=== PATIENT | male | born 1995 | race American Indian/Alaskan Native ===

== ENCOUNTER 2016-10-15 05:58 | Emergency (ER) | payer MEDICAID ==
[2016-10-15] MEDS ORDERED: cefTRIAXone IV 1 gm in Dextros 50 ML IVPB ONE ×2 (06:20→06:27)
--- NOTE | 2016-10-15 06:32 | C.PDOC ---
History Of Present Illness A 21 year old male presents to the ER c/o sore throat for 3 days. Pt denies fever, chills, cough, vomiting, nausea, or any other complaints. Time Seen by Provider: 10/15/16 06:29 Chief Complaint (Nursing): ENT Problem History Per: Patient History/Exam Limitations: no limitations Onset/Duration Of Symptoms: Days Current Symptoms Are (Timing): Still Present Sick Contacts (Context): None Severity: Mild Recent travel outside of the [place]: No Additional History Per: Patient Past Medical History Reviewed: Historical Data, Nursing Documentation, Vital Signs Vital Signs: Last Vital Signs Temp 98.7 F 10/15/16 06:54 Pulse 82 10/15/16 06:54 Resp 16 10/15/16 06:54 BP 120/79 10/15/16 06:54 Pulse Ox 94 L 10/18/16 17:16 - Medical History PMH: Asthma Denies: Chronic Kidney Disease Family History: States: Unknown Family Hx - Social History Hx Tobacco Use: Yes Hx Alcohol Use: No Hx Substance Use: No - Immunization History Hx Tetanus Toxoid Vaccination: No Hx Influenza Vaccination: No Hx Pneumococcal Vaccination: No Review Of Systems Except As Marked, All Systems Reviewed And Found Negative. Constitutional: Negative for: Fever, Chills ENT: Positive for: Throat Pain. Negative for: Throat Swelling Respiratory: Negative for: Cough Gastrointestinal: Negative for: Nausea, Vomiting Musculoskeletal: Negative for: Neck Pain, Shoulder Pain, Arm Pain Skin: Negative for: Rash Neurological: Negative for: Weakness, Numbness Physical Exam - Physical Exam Appears: Non-toxic, No Acute Distress Skin: Warm, Dry Head: Atraumatic, Normacephalic Eye(s): bilateral: Normal Inspection, EOMI Oral Mucosa: Moist Throat: No Exudate Neck: Normal ROM, Supple Lymphatic: Other (Cervical node swollen bilaterally) Cardiovascular: Rhythm Regular, No Murmur Respiratory: Normal Breath Sounds, No Rales, No Rhonchi, No Wheezing Neurological/Psych: Oriented x3, Normal Speech ED Course And Treatment O2 Sat by Pulse Oximetry: 94 (RA) Pulse Ox Interpretation: Normal Medical Decision Making Medical Decision Making: Plans: -IV fluids -Throat culture -Reassess and disposition On reassessment, patient is resting comfortably, and is in no acute distress. Patient was instructed to follow up with physician/clinic in 1-2 days for further evaluation. Disposition Counseled Patient/Family Regarding: Diagnosis - Disposition Referrals: [facility] [Outside] Disposition: HOME/ ROUTINE Disposition Time: 06:50 Condition: STABLE Additional Instructions: warm salt water gargle every 2 hours Prescriptions: Amoxicillin [Trimox] 500 mg PO Q8 7 Days Instructions: Tonsillitis (ED) - Clinical Impression Clinical Impression: Acute tonsillitis - Scribe Statement The provider has reviewed the documentation as recorded by the Scribpranav austin All medical record entries made by the Shawnibpranav were at my direction and personally dictated by me. I have reviewed the chart and agree that the record accurately reflects my personal performance of the history, physical exam, medical decision making, and the department course for this patient. I have also personally directed, reviewed, and agree with the discharge instructions and disposition.
[2016-10-15 06:55] VITALS: BP 120/79; PULSE 82; RESP 16; TEMP 98.7
[2016-10-18 17:15] VITALS: O2SAT 94
== END 2016-10-15 06:57 | disposition home or self-care (01) ==
LOC: C.ER 05:58
DX: J03.90 Acute tonsillitis, unspecified (principal)
CPT/HCPCS: 87070; 96365; 99283; J0696

== ENCOUNTER 2016-10-25 07:18 | Inpatient (IN) | payer MEDICAID ==
[2016-10-25] MEDS ORDERED: Albuterol-Ipratrop 3 mg / 0.5 (3 ml) UD ONE ×3 (07:23→10:07)
[2016-10-25 07:43] VITALS: BMI 24.4
--- NOTE | 2016-10-25 07:48 | C.PDOC ---
Time Seen by Provider: 10/25/16 07:25 Chief Complaint (Nursing): Shortness Of Breath Past Medical History Vital Signs: Last Vital Signs Temp Pulse 88 10/25/16 07:25 Resp 24 10/25/16 07:25 BP 136/66 10/25/16 07:25 Pulse Ox 95 10/25/16 07:25 - Medical History PMH: Asthma Denies: Chronic Kidney Disease Family History: States: Unknown Family Hx - Social History Hx Tobacco Use: Yes Hx Alcohol Use: No Hx Substance Use: No - Immunization History Hx Tetanus Toxoid Vaccination: No Hx Influenza Vaccination: No Hx Pneumococcal Vaccination: No ED Course And Treatment O2 Sat by Pulse Oximetry: 95 - Scribe Statement The provider has reviewed the documentation as recorded by the Shawnibpranav Roque All medical record entries made by the Shawnibpranav were at my direction and personally dictated by me. I have reviewed the chart and agree that the record accurately reflects my personal performance of the history, physical exam, medical decision making, and the department course for this patient. I have also personally directed, reviewed, and agree with the discharge instructions and disposition.
--- NOTE | 2016-10-25 07:54 | C.PDOC ---
History Of Present Illness 21-year-old male, PMHx includes Asthma, presents to the emergency department with complaints of worsening shortness of breath and wheezing x4 days. Patient is using his inhaler at home with limited relief. Patients last treatment was yesterday. Time Seen by Provider: 10/25/16 07:25 Chief Complaint (Nursing): Shortness Of Breath History Per: Patient History/Exam Limitations: no limitations Onset/Duration Of Symptoms: Days Current Symptoms Are (Timing): Still Present Past Medical History Reviewed: Historical Data, Nursing Documentation, Vital Signs Vital Signs: Last Vital Signs Temp 98.3 F 10/25/16 11:46 Pulse 101 H 10/25/16 11:46 Resp 22 10/25/16 11:46 BP 139/64 10/25/16 11:46 Pulse Ox 93 L 10/25/16 11:46 - Medical History PMH: Asthma Denies: Chronic Kidney Disease Family History: States: No Known Family Hx - Social History Hx Tobacco Use: Yes Hx Alcohol Use: No Hx Substance Use: No - Immunization History Hx Tetanus Toxoid Vaccination: No Hx Influenza Vaccination: No Hx Pneumococcal Vaccination: No Review Of Systems Except As Marked, All Systems Reviewed And Found Negative. Constitutional: Negative for: Fever, Chills Cardiovascular: Negative for: Chest Pain Respiratory: Positive for: Shortness of Breath, Wheezing Gastrointestinal: Negative for: Nausea, Vomiting Physical Exam - Physical Exam Appears: Non-toxic, No Acute Distress Skin: Warm, Dry Head: Atraumatic Eye(s): bilateral: Normal Inspection Nose: Normal Oral Mucosa: Moist Lips: Normal Appearing Neck: Normal ROM Chest: Symmetrical Cardiovascular: Rhythm Regular Respiratory: No Accessory Muscle Use, Wheezing Extremity: Normal ROM ED Course And Treatment - Laboratory Results Result Diagrams: 10/25/16 10:21 10/25/16 10:21 Lab Interpretation: No Acute Changes O2 Sat by Pulse Oximetry: 95 Pulse Ox Interpretation: Normal - Radiology CXR: Interpreted by Ga CXR Interpretation: Yes: No Acute Disease Progress Note: Case discussed with Dr. Dyson who is aware of the plan and will admit the patient. Dr. Dyson requests to have an ABG done. Reassessment Condition: Improved - Physician Consult Information Physician Contacted: Shelly Dyson Outcome Of Conversation: admit Medical Decision Making Medical Decision Making: Treated with prednisone 60 mg PO and duoneb x 3 On re-evaluation lungs wheeze and rhonchi Treated with addditional duoneb x 2, 1 L NSS O2 sat 90 on RA Disposition Discussed With Dr.: Shelly Dyson Doctor Will See Patient In The: Hospital - Disposition Disposition: HOSPITALIZED Disposition Time: 11:00 Condition: STABLE - POA Present On Arrival: None - Clinical Impression Clinical Impression: Respiratory distress, Asthma exacerbation, Exacerbation of asthma - Scribe Statement The provider has reviewed the documentation as recorded by the Len Roque All medical record entries made by the Shawnibpranav were at my direction and personally dictated by me. I have reviewed the chart and agree that the record accurately reflects my personal performance of the history, physical exam, medical decision making, and the department course for this patient. I have also personally directed, reviewed, and agree with the discharge instructions and disposition. Decision To Admit - Pt Status Changed To: Hospital Disposition Of: Observation - . Bed Request Type: Regular Admitting Physician: Shelly Dyson Patient Diagnosis: Respiratory distress, Asthma exacerbation, Exacerbation of asthma
[2016-10-25] MEDS: Albuterol-Ipratrop 3 mg / 0.5 (3 ml) UD IH SCH ×5 (08:00→10:50)
[2016-10-25] MEDS ORDERED: Sodium Chloride 0.9% 1,000 ML IV ONE (08:55)
--- NOTE | 2016-10-25 10:02 | RAD ---
HISTORY: SOB COMPARISON: No prior. TECHNIQUE: Chest PA and lateral FINDINGS: LUNGS: No active pulmonary disease. PLEURA: No significant pleural effusion identified. No pneumothorax apparent. CARDIOVASCULAR: Normal. OSSEOUS STRUCTURES: No significant abnormalities. VISUALIZED UPPER ABDOMEN: Normal. OTHER FINDINGS: None. IMPRESSION: No active disease.
[2016-10-25 10:25] LABS: BASO # 0.1 K/uL (0.0-0.2); BASO % 0.6 % (0.0-2.0); EOS # 0.3 K/uL (0.0-0.7); EOS % 2.4 % (0.0-4.0); HEMATOCRIT 44.2 % (35.0-51.0); LYMPH # 1.3 K/uL (1.0-4.3); LYMPH % 10.8 % (20.0-40.0); MEAN CELL VOLUME 86.3 fL (80.0-94.0); MEAN CORPUSCULAR HEMOGLOBIN 29.4 pg (27.0-31.0); MEAN CORPUSCULAR HGB CONC 34.1 g/dL (33.0-37.0); MEAN PLATELET VOLUME 7.1 fL (7.2-11.7); MONO # 0.4 K/uL (0.0-0.8); MONO % 3.5 % (0.0-10.0); RED CELL DISTRIBUTION WIDTH 12.3 % (11.5-14.5)
[2016-10-25 10:51] LABS: CHLORIDE 101 mmol/L (98-107); POTASSIUM 3.7 mmol/L (3.6-5.2); SODIUM 139 mmol/L (132-148)
[2016-10-25 10:53] LABS: BILIRUBIN,TOTAL 0.9 mg/dL (0.2-1.3); GFR AFRICAN-AMERICAN > 60
[2016-10-25 10:54] LABS: ALKALINE PHOSPHATASE 56 U/L (38-126); ALT/SGPT 18 U/L (21-72); AST/SGOT 48 U/L (17-59); BLOOD UREA NITROGEN 9 mg/dL (9-20); CALCIUM 9.1 mg/dl (8.6-10.4); CARBON DIOXIDE 25 mmol/L (22-30); GLUCOSE,RANDOM 100 mg/dL (75-110); TOTAL PROTEIN 8.6 g/dL (6.3-8.3)
[2016-10-25 11:36] LABS: ABG ALLEN TEST POS; ARTERIAL BLOOD HGB O2 SAT 90.9 % (95.0-98.0); CARBOXYHEMOGLOBIN 1.7 % (0.5-1.5); DRAW SITE RR; HHB 6.3 % (0.0-5.0); METHEMOGLOBIN 1.2 % (0.0-3.0)
--- NOTE | 2016-10-25 11:36 | CP.PCM.HP ---
<Bhavna Guillen - Last Filed: 10/25/16 13:57> History of Present Illness - History of Present Illness History of Present Illness: Medicine Note for Dr. Cosby, CC: SOB HPI: 21M with PMHx of asthma came in to the ED complaining of shortness of breath and wheezing. He states that he was recently in the hospital last week for tonsillitis and was discharged with antibiotics which he completed his course. He states that since his illness his breathing has been getting progressively worse where he would need his nebulizer 3-4 times a day, and would feel short of breath right after its use. He states that his SOB gets worse with exertion. He states that he has been hospitalized in the past for asthma exacerbations when he was a child and does not recall ever being intubated. He does not have a PMD and states he gets his medications from his cousins which include an Albuterol inhaler and a nebulizer. He states that he usually uses his inhaler 2 times a day and his nebulizer as much as 4 times a day. He admits to dry coughing, sob, chest discomfort from coughing, and wheezing. He denies any chest pain, palpitations, nausea, hematemesis, vomiting , fever, chills, recent travel, or sick contacts. PMD: NONE PMHx: Asthma PSHx: Denied Meds: albuterol and nebulizer All: seafood SHx: Denied any tobacco, alcohol, or illicit drug use FHx: Asthma Present on Admission - Present on Admission Any Indicators Present on Admission: No Past Patient History - Infectious Disease Hx of Infectious Diseases: None - Past Social History Smoking Status: Never Smoked - PULMONARY Hx Asthma: Yes - NEUROLOGICAL Hx Neurological Disorder: No - HEENT Hx HEENT Problems: No - RENAL Hx Chronic Kidney Disease: No - ENDOCRINE/METABOLIC Hx Endocrine Disorders: No - HEMATOLOGICAL/ONCOLOGICAL Hx Blood Disorders: No - INTEGUMENTARY Hx Dermatological Problems: No - MUSCULOSKELETAL/RHEUMATOLOGICAL Hx Musculoskeletal Disorders: No - GASTROINTESTINAL Hx Gastrointestinal Disorders: No - GENITOURINARY/GYNECOLOGICAL Hx Genitourinary Disorders: No - PSYCHIATRIC Hx Substance Use: No - SURGICAL HISTORY Hx Surgeries: No - ANESTHESIA Hx Anesthesia: No Meds Allergies/Adverse Reactions: Allergies Allergy/AdvReac Type Severity Reaction Status Date / Time seafood Allergy URTICARIA Uncoded 02/10/16 00:35 Physical Exam - Constitutional Appears: No Acute Distress - ENT Exam ENT Exam: Mucous Membranes Moist - Respiratory Exam Respiratory Exam: Wheezes - Cardiovascular Exam Cardiovascular Exam: Tachycardia - GI/Abdominal Exam GI & Abdominal Exam: Normal Bowel Sounds, Soft. absent: Distended, Tenderness - Extremities Exam Extremities exam: Positive for: normal inspection, pedal pulses present. Negative for: pedal edema, tenderness - Skin Skin Exam: Dry, Intact, Normal Color, Warm Results - Vital Signs Recent Vital Signs: Last Vital Signs Temp 98.8 F 10/25/16 07:25 Pulse 88 10/25/16 07:25 Resp 24 10/25/16 07:45 BP 136/66 10/25/16 07:25 Pulse Ox 95 10/25/16 11:05 - Labs Result Diagrams: 10/25/16 10:21 10/25/16 10:21 Assessment & Plan - Assessment and Plan (Free Text) Assessment: 21M with PMHx of Asthma presented to the ED with Asthma Exacerbation. Plan: Asthma Exacerbation - Received Duonebs x3 Q15 min, predisone 60mg PO in ED; continuous bilateral wheezing - Duonebs Q6H - Pulmicort IH Q12H - Solumedrol 40mg IV Q8H Prophylactic Measures - GI PPX: Protonix 40mg PO daily - DVT PPX: Lovenox 40units SC daily - Regular Diet - Zofran PRN DW Wilmer Sandoval DO, PGY-1 <Chase Cosby - Last Filed: 10/25/16 16:20> Results - Vital Signs Recent Vital Signs: Last Vital Signs Temp 98.6 F 10/25/16 13:23 Pulse 87 10/25/16 13:23 Resp 22 10/25/16 13:23 BP 116/66 10/25/16 13:23 Pulse Ox 92 L 10/25/16 13:23 - Labs Result Diagrams: 10/25/16 10:21 10/25/16 10:21 Labs: Laboratory Results - last 24 hr 10/25/16 10/25/16 11:33 12:21 Puncture Site Rr pCO2 30 L pO2 61 L HCO3 23.2 ABG pH 7.45 ABG Total CO2 21.8 L ABG O2 Saturation 93.5 L ABG Base Excess -2.0 ABG Hemoglobin 14.6 ABG Carboxyhemoglobin 1.7 H POC ABG HHb (Measured) 6.3 H ABG Methemoglobin 1.2 Von Test Pos A-a O2 Difference 51.0 Respiratory Index 0.8 Hgb O2 Saturation 90.9 L FiO2 21.0 Urine Color Yellow Urine Clarity Clear Urine pH 6.0 Ur Specific [place] 1.027 Urine Protein Negative Urine Glucose (UA) Normal Urine Ketones 1+ H Urine Blood Negative Urine Nitrate Negative Urine Bilirubin Negative Urine Urobilinogen 2.0 Ur Leukocyte Esterase Neg Urine WBC (Auto) 1 Urine RBC (Auto) 1 Attending/Attestation - Attestation I have personally seen and examined this patient.: Yes I have fully participated in the care of the patient.: Yes I have reviewed all pertinent clinical information: Yes Notes (Text): 10/25/16 16:17 Patient seen and examined at bedside with the resident We will admit the patient for acute asthma exacerbation Start the patient on IV steroids and inhaled steroids and nebulizing treatment. I discussed the plan of care with the resident and I agree with above history and physical and assessment/plan by the resident
[2016-10-25 12:54] LABS: RBC URINE 1 /hpf (0-3); URINE BILIRUBIN NEGATIVE (NEGATIVE); URINE BLOOD NEGATIVE (NEGATIVE); URINE COLOR Yellow (YELLOW); URINE GLUCOSE (UA) NORMAL (Normal); URINE KETONE 1+ mg/dL (NEGATIVE); URINE LEUKOCYTE ESTERASE NEG Leu/uL (Negative); URINE PROTEIN NEGATIVE (NEGATIVE); WBC URINE 1 /hpf (0-5)
[2016-10-25] MEDS: MethylPREDNISolone 40 mg Vial IVP SCH ×2 (14:12→21:57)
[2016-10-25] MEDS: Albuterol-Ipratrop 3 mg / 0.5 (3 ml) UD INH SCH (23:44)
[2016-10-26] MEDS: Albuterol-Ipratrop 3 mg / 0.5 (3 ml) UD INH SCH ×4 (01:28→20:05)
[2016-10-26] MEDS: MethylPREDNISolone 40 mg Vial IVP SCH ×3 (05:41→21:30)
[2016-10-26] MEDS: Budesonide 0.5 mg/2 ml Inhal Susp UD INH SCH ×2 (07:20→20:05)
[2016-10-26 09:04] LABS: BASO % 0.1 % (0.0-2.0); HEMATOCRIT 42.7 % (35.0-51.0); LYMPH % 9.8 % (20.0-40.0); MEAN CELL VOLUME 87.3 fL (80.0-94.0); MEAN CORPUSCULAR HEMOGLOBIN 30.2 pg (27.0-31.0); MEAN CORPUSCULAR HGB CONC 34.7 g/dL (33.0-37.0); MEAN PLATELET VOLUME 7.5 fL (7.2-11.7); MONO # 0.3 K/uL (0.0-0.8); MONO % 2.6 % (0.0-10.0); PLATELET COUNT 430 K/uL (130-400); RED CELL DISTRIBUTION WIDTH 12.5 % (11.5-14.5); WHITE BLOOD COUNT 10.8 K/uL (4.8-10.8)
[2016-10-26 09:37] LABS: CHLORIDE 101 mmol/L (98-107)
[2016-10-26 09:38] LABS: POTASSIUM 4.1 mmol/L (3.6-5.2); SODIUM 139 mmol/L (132-148)
[2016-10-26 09:40] LABS: ALKALINE PHOSPHATASE 56 U/L (38-126); ALT/SGPT 21 U/L (21-72); AST/SGOT 31 U/L (17-59); BILIRUBIN,TOTAL 0.8 mg/dL (0.2-1.3); BLOOD UREA NITROGEN 14 mg/dL (9-20); CARBON DIOXIDE 24 mmol/L (22-30); GFR AFRICAN-AMERICAN > 60; GLUCOSE,RANDOM 130 mg/dL (75-110); TOTAL PROTEIN 8.5 g/dL (6.3-8.3)
[2016-10-26 09:41] LABS: CALCIUM 9.1 mg/dl (8.6-10.4); PHOSPHOROUS 4.2 mg/dL (2.5-4.5)
[2016-10-26 09:47] LABS: NEUTROPHIL 88 % (50-75); TOTAL CELLS COUNTED 100
[2016-10-26 09:48] LABS: GIANT PLATELETS PRESENT; LARGE PLATELETS PRESENT
[2016-10-26] MEDS: Pantoprazole 40 mg EC Tab PO SCH (10:08)
[2016-10-26] MEDS: Enoxaparin 40 mg Syringe SC SCH (10:08)
--- NOTE | 2016-10-26 15:26 | CP.PCM.PN ---
<Bhavna Guillen - Last Filed: 10/26/16 15:23> Subjective - Date & Time of Evaluation Date of Evaluation: 10/26/16 Time of Evaluation: 10:00 - Subjective Subjective: Medicine Note for Dr. Cosby, Patient seen and examined at bedside. No acute events overnight. Patient reports he slept with NC on all night. Patient reports his breathing is a lot easier and he is not feeling short of breath. Ambulating well and tolerating diet. Denied fever, chills, chest pain, shortness of breath, abdominal pain or urinary symptoms. Objective - Vital Signs/Intake and Output Vital Signs (last 24 hours): Temp Pulse Resp BP Pulse Ox 97.8 F 85 18 116/66 91 L 10/26/16 08:00 10/26/16 08:00 10/26/16 08:00 10/26/16 08:00 10/26/16 08:00 Intake and Output: 10/26/16 10/26/16 06:59 18:59 Intake Total 480 Balance 480 - Medications Medications: Current Medications Albuterol/Ipratropium (Duoneb 3 Mg/0.5 Mg (3 Ml) Ud) 3 ml INH RQ6 [facility] Last Admin: 10/26/16 07:21 Dose: 3 ml Budesonide (Pulmicort Respules) 0.5 mg INH RQ12 [facility] Last Admin: 10/26/16 07:20 Dose: 0.5 mg Enoxaparin Sodium (Lovenox) 40 mg SC DAILY [facility] Last Admin: 10/26/16 10:08 Dose: 40 mg Methylprednisolone (Solu-Medrol) 40 mg IVP Q8 [facility] Last Admin: 10/26/16 14:33 Dose: Not Given Ondansetron HCl (Zofran Inj) 4 mg IVP Q6 PRN PRN Reason: Nausea/Vomiting Pantoprazole Sodium (Protonix Ec Tab) 40 mg PO DAILY [facility] Last Admin: 10/26/16 10:08 Dose: 40 mg - Constitutional Appears: No Acute Distress - Head Exam Head Exam: NORMAL INSPECTION, NORMOCEPHALIC - Respiratory Exam Respiratory Exam: Wheezes, NORMAL BREATHING PATTERN. absent: Decreased Breath Sounds Additional comments: Continues to have Bilateral wheezing at the lower lung bases - Cardiovascular Exam Cardiovascular Exam: REGULAR RHYTHM, RRR, +S1, +S2 - GI/Abdominal Exam GI & Abdominal Exam: Soft, Normal Bowel Sounds - Extremities Exam Extremities Exam: Normal Inspection. absent: Pedal Edema, Tenderness - Neurological Exam Neurological Exam: Alert, Awake, Oriented x3 - Skin Skin Exam: Dry, Intact, Normal Color, Warm Assessment and Plan - Assessment and Plan (Free Text) Plan: Asthma Exacerbation - Received Duonebs x3 Q15 min, predisone 60mg PO in ED; continuous bilateral wheezing - Duonebs Q6H - Pulmicort IH Q12H - Solumedrol 40mg IV Q8H - Continue due to persistent wheezing - Peak flow Pre 150, post tx 150 Prophylactic Measures - GI PPX: Protonix 40mg PO daily - DVT PPX: Lovenox 40units SC daily - Regular Diet - Zofran PRN DW Wilmer Sandoval DO, PGY-1 <Chase Cosby - Last Filed: 10/26/16 17:29> Objective - Vital Signs/Intake and Output Vital Signs (last 24 hours): Temp Pulse Resp BP Pulse Ox 98 F 92 H 20 111/65 95 10/26/16 16:00 10/26/16 16:00 10/26/16 16:00 10/26/16 16:00 10/26/16 16:00 Intake and Output: 10/26/16 10/26/16 06:59 18:59 Intake Total 480 Balance 480 - Medications Medications: Current Medications Albuterol/Ipratropium (Duoneb 3 Mg/0.5 Mg (3 Ml) Ud) 3 ml INH RQ6 [facility] Last Admin: 10/26/16 07:21 Dose: 3 ml Budesonide (Pulmicort Respules) 0.5 mg INH RQ12 [facility] Last Admin: 10/26/16 07:20 Dose: 0.5 mg Enoxaparin Sodium (Lovenox) 40 mg SC DAILY [facility] Last Admin: 10/26/16 10:08 Dose: 40 mg Methylprednisolone (Solu-Medrol) 40 mg IVP Q8 [facility] Last Admin: 10/26/16 14:33 Dose: Not Given Ondansetron HCl (Zofran Inj) 4 mg IVP Q6 PRN PRN Reason: Nausea/Vomiting Pantoprazole Sodium (Protonix Ec Tab) 40 mg PO DAILY [facility] Last Admin: 10/26/16 10:08 Dose: 40 mg Attending/Attestation - Attestation I have personally seen and examined this patient.: Yes I have fully participated in the care of the patient.: Yes I have reviewed all pertinent clinical information, including history, physical exam and plan: Yes Notes (Text): 10/26/16 17:29 Patient was seen and examined at bedside. Patient still has significant wheezing. Peak flow noted. We will continue treatment with IV Solu-Medrol and DuoNeb treatment We will also continue Pulmicort. I discussed the plan of care with the resident and I agree with the above history and physical and assessment/plan but the resident
[2016-10-26 17:03] VITALS: RESP 20
[2016-10-27] MEDS: Albuterol-Ipratrop 3 mg / 0.5 (3 ml) UD INH SCH ×4 (01:02→19:07)
[2016-10-27] MEDS: MethylPREDNISolone 40 mg Vial IVP SCH ×3 (05:48→21:58)
[2016-10-27] MEDS: Budesonide 0.5 mg/2 ml Inhal Susp UD INH SCH (07:27)
[2016-10-27 07:36] LABS: HEMATOCRIT 42.8 % (35.0-51.0); MEAN CELL VOLUME 87.2 fL (80.0-94.0); MEAN CORPUSCULAR HGB CONC 34.4 g/dL (33.0-37.0); MEAN PLATELET VOLUME 7.4 fL (7.2-11.7); RED CELL DISTRIBUTION WIDTH 12.5 % (11.5-14.5); WHITE BLOOD COUNT 13.5 K/uL (4.8-10.8)
[2016-10-27 08:04] LABS: CHLORIDE 102 mmol/L (98-107)
[2016-10-27 08:05] LABS: POTASSIUM 4.1 mmol/L (3.6-5.2); SODIUM 139 mmol/L (132-148)
[2016-10-27 08:07] LABS: AST/SGOT 20 U/L (17-59); BILIRUBIN,TOTAL 0.6 mg/dL (0.2-1.3); BLOOD UREA NITROGEN 15 mg/dL (9-20); CARBON DIOXIDE 26 mmol/L (22-30); GFR AFRICAN-AMERICAN > 60; TOTAL PROTEIN 8.2 g/dL (6.3-8.3)
[2016-10-27 08:08] LABS: ALKALINE PHOSPHATASE 53 U/L (38-126); ALT/SGPT 18 U/L (21-72); CALCIUM 8.7 mg/dl (8.6-10.4); GLUCOSE,RANDOM 118 mg/dL (75-110)
[2016-10-27] MEDS: Enoxaparin 40 mg Syringe SC SCH (10:00)
[2016-10-27] MEDS: Pantoprazole 40 mg EC Tab PO SCH (10:05)
--- NOTE | 2016-10-27 14:18 | CP.PCM.PN ---
<Bhavna Guillen - Last Filed: 10/27/16 14:15> Subjective - Date & Time of Evaluation Date of Evaluation: 10/27/16 Time of Evaluation: 10:00 - Subjective Subjective: Medicine Note for Dr. Cosby, Patient seen and examined at bedside. No acute events overnight. Patient reports his breathing is a lot easier but continues to have audible wheezing, and wheezing on physical exam. Ambulating well without oxygen and tolerating diet. Denied fever, chills, chest pain, shortness of breath, abdominal pain or urinary symptoms. Objective - Vital Signs/Intake and Output Vital Signs (last 24 hours): Temp Pulse Resp BP Pulse Ox 98.1 F 69 20 117/65 94 L 10/27/16 07:05 10/27/16 07:05 10/27/16 07:05 10/27/16 07:05 10/27/16 07:05 - Medications Medications: Current Medications Albuterol/Ipratropium (Duoneb 3 Mg/0.5 Mg (3 Ml) Ud) 3 ml INH RQ6 [facility] Last Admin: 10/27/16 13:34 Dose: 3 ml Budesonide (Pulmicort Respules) 0.5 mg INH RQ12 [facility] Last Admin: 10/27/16 07:27 Dose: 0.5 mg Enoxaparin Sodium (Lovenox) 40 mg SC DAILY [facility] Last Admin: 10/27/16 10:00 Dose: 40 mg Methylprednisolone (Solu-Medrol) 40 mg IVP Q8 [facility] Last Admin: 10/27/16 05:48 Dose: 40 mg Ondansetron HCl (Zofran Inj) 4 mg IVP Q6 PRN PRN Reason: Nausea/Vomiting Pantoprazole Sodium (Protonix Ec Tab) 40 mg PO DAILY [facility] Last Admin: 10/27/16 10:05 Dose: 40 mg - Labs Labs: 10/27/16 07:25 10/27/16 07:25 - Constitutional Appears: No Acute Distress - Head Exam Head Exam: NORMAL INSPECTION, NORMOCEPHALIC - Respiratory Exam Respiratory Exam: Wheezes - Cardiovascular Exam Cardiovascular Exam: REGULAR RHYTHM, RRR, +S1, +S2 - GI/Abdominal Exam GI & Abdominal Exam: Soft, Normal Bowel Sounds. absent: Distended, Tenderness - Extremities Exam Extremities Exam: Normal Inspection. absent: Pedal Edema, Tenderness - Neurological Exam Neurological Exam: Alert, Awake, Oriented x3 - Skin Skin Exam: Dry, Intact, Normal Color, Warm Assessment and Plan - Assessment and Plan (Free Text) Plan: Asthma Exacerbation - Received Duonebs x3 Q15 min, predisone 60mg PO in ED; continuous bilateral wheezing - Duonebs Q6H - Pulmicort IH Q12H - Solumedrol 40mg IV Q8H - Continue due to persistent wheezing - Peak flow Pre 150, post tx 150 Prophylactic Measures - GI PPX: Protonix 40mg PO daily - DVT PPX: Lovenox 40units SC daily - Regular Diet - Zofran PRN DW Wilmer Sandoval DO, PGY-1 <Chase Cosby - Last Filed: 10/27/16 16:17> Objective - Vital Signs/Intake and Output Vital Signs (last 24 hours): Temp Pulse Resp BP Pulse Ox 98.1 F 69 20 117/65 94 L 10/27/16 07:05 10/27/16 07:05 10/27/16 07:05 10/27/16 07:05 10/27/16 07:05 Intake and Output: 10/27/16 10/27/16 06:59 18:59 Intake Total 400 Balance 400 - Medications Medications: Current Medications Albuterol/Ipratropium (Duoneb 3 Mg/0.5 Mg (3 Ml) Ud) 3 ml INH RQ6 [facility] Last Admin: 10/27/16 13:34 Dose: 3 ml Budesonide (Pulmicort Respules) 0.5 mg INH RQ12 [facility] Last Admin: 10/27/16 07:27 Dose: 0.5 mg Enoxaparin Sodium (Lovenox) 40 mg SC DAILY [facility] Last Admin: 10/27/16 10:00 Dose: 40 mg Methylprednisolone (Solu-Medrol) 40 mg IVP Q8 [facility] Last Admin: 10/27/16 14:25 Dose: 40 mg Ondansetron HCl (Zofran Inj) 4 mg IVP Q6 PRN PRN Reason: Nausea/Vomiting Pantoprazole Sodium (Protonix Ec Tab) 40 mg PO DAILY [facility] Last Admin: 10/27/16 10:05 Dose: 40 mg - Labs Labs: 10/27/16 07:25 10/27/16 07:25 Attending/Attestation - Attestation I have personally seen and examined this patient.: Yes I have fully participated in the care of the patient.: Yes I have reviewed all pertinent clinical information, including history, physical exam and plan: Yes Notes (Text): 10/27/16 16:16 Patient was seen and examined at bedside with the resident Patient continues to have significant wheezing. We will continue treatment with IV Solu-Medrol and nebulizing treatment Patient is also on Pulmicort Peak flow noted. I reviewed patient's chart, medical records, labs, imaging studies and I discussed the plan of care with the resident I agree with the above history and physical and assessment/plan but the resident.
[2016-10-28] MEDS: Albuterol-Ipratrop 3 mg / 0.5 (3 ml) UD INH SCH ×4 (02:07→19:21)
--- NOTE | 2016-10-28 03:07 | CP.PCM.PN ---
<Beck Roberson - Last Filed: 10/28/16 03:12> Subjective - Date & Time of Evaluation Date of Evaluation: 10/28/16 Time of Evaluation: 03:05 - Subjective Subjective: Med progress note. Attending: Dr. Cosby Patient seen and examined at bedside. No acute events so far overnight. Patient denies shortness of breath and says he feels better. Ambulating well without oxygen and tolerating diet. Denied fever, chills, chest pain, shortness of breath, abdominal pain or urinary symptoms. Objective - Vital Signs/Intake and Output Vital Signs (last 24 hours): Temp Pulse Resp BP Pulse Ox 98 F 73 20 125/66 95 10/27/16 23:44 10/27/16 23:44 10/27/16 23:44 10/27/16 23:44 10/27/16 23:44 Intake and Output: 10/27/16 10/28/16 18:59 06:59 Intake Total 400 Balance 400 - Medications Medications: Current Medications Albuterol/Ipratropium (Duoneb 3 Mg/0.5 Mg (3 Ml) Ud) 3 ml INH RQ6 [facility] Last Admin: 10/28/16 02:07 Dose: 3 ml Budesonide (Pulmicort Respules) 0.5 mg INH RQ12 [facility] Last Admin: 10/27/16 07:27 Dose: 0.5 mg Enoxaparin Sodium (Lovenox) 40 mg SC DAILY [facility] Last Admin: 10/27/16 10:00 Dose: 40 mg Methylprednisolone (Solu-Medrol) 40 mg IVP Q8 [facility] Last Admin: 10/27/16 21:58 Dose: 40 mg Ondansetron HCl (Zofran Inj) 4 mg IVP Q6 PRN PRN Reason: Nausea/Vomiting Pantoprazole Sodium (Protonix Ec Tab) 40 mg PO DAILY [facility] Last Admin: 10/27/16 10:05 Dose: 40 mg - Labs Labs: 10/27/16 07:25 10/27/16 07:25 - Constitutional Appears: Non-toxic, No Acute Distress - Head Exam Head Exam: ATRAUMATIC, NORMAL INSPECTION, NORMOCEPHALIC - Eye Exam Eye Exam: EOMI - ENT Exam ENT Exam: Mucous Membranes Moist - Neck Exam Neck Exam: Full ROM, Normal Inspection - Respiratory Exam Respiratory Exam: Wheezes. absent: Respiratory Distress - Cardiovascular Exam Cardiovascular Exam: +S1, +S2 - GI/Abdominal Exam GI & Abdominal Exam: Soft, Normal Bowel Sounds. absent: Tenderness - Extremities Exam Extremities Exam: Full ROM, Normal Inspection - Back Exam Back Exam: NORMAL INSPECTION - Neurological Exam Neurological Exam: Alert, Awake, Oriented x3 - Psychiatric Exam Psychiatric exam: Normal Affect, Normal Mood - Skin Skin Exam: Dry, Intact, Normal Color, Warm Assessment and Plan - Assessment and Plan (Free Text) Assessment: This is a 21 yo male with past medical hx of asthma presenting with Asthma Exacerbation -continue duonebs round the clock q 6 hrs - Pulmicort IH .5 mg Q12H - Solumedrol 40mg IV Q8H - Continue due to persistent wheezing -pt hemodynamically stable, no resp distress -CXR 10/25 : no active disease. Prophylactic Measures - GI PPX: Protonix 40mg PO daily - DVT PPX: Lovenox 40units SC daily - Regular Diet - Zofran 4 mg q 6 hrs PRN to be discussed with Dr. Cosby <Chase Cosby - Last Filed: 10/28/16 14:49> Objective - Vital Signs/Intake and Output Vital Signs (last 24 hours): Temp Pulse Resp BP Pulse Ox 97.4 F L 63 20 124/74 97 10/28/16 08:10 10/28/16 08:10 10/28/16 08:10 10/28/16 08:10 10/28/16 08:10 Intake and Output: 10/28/16 10/28/16 06:59 18:59 Intake Total 120 Balance 120 - Medications Medications: Current Medications Albuterol/Ipratropium (Duoneb 3 Mg/0.5 Mg (3 Ml) Ud) 3 ml INH RQ6 [facility] Last Admin: 10/28/16 13:52 Dose: 3 ml Budesonide (Pulmicort Respules) 0.5 mg INH RQ12 [facility] Last Admin: 10/28/16 09:45 Dose: 0.5 mg Methylprednisolone (Solu-Medrol) 40 mg IVP Q8 [facility] Last Admin: 10/28/16 14:34 Dose: 40 mg Ondansetron HCl (Zofran Inj) 4 mg IVP Q6 PRN PRN Reason: Nausea/Vomiting Pantoprazole Sodium (Protonix Ec Tab) 40 mg PO DAILY [facility] Last Admin: 10/28/16 10:17 Dose: 40 mg - Labs Labs: 10/27/16 07:25 10/27/16 07:25 Attending/Attestation - Attestation I have personally seen and examined this patient.: Yes I have fully participated in the care of the patient.: Yes I have reviewed all pertinent clinical information, including history, physical exam and plan: Yes Notes (Text): 10/28/16 14:48 Patient seen and examined at bedside. He states that he is feeling slightly better. Breathing has improved. However we will continue to monitor peak flow pre-and post treatment Patient is not ready for discharge as yet. We will continue current management Discussed the plan of care with the resident.
[2016-10-28] MEDS: MethylPREDNISolone 40 mg Vial IVP SCH ×3 (06:53→22:26)
[2016-10-28] MEDS: Budesonide 0.5 mg/2 ml Inhal Susp UD INH SCH ×2 (09:45→19:21)
[2016-10-28] MEDS: Enoxaparin 40 mg Syringe SC SCH (10:17)
[2016-10-28] MEDS: Pantoprazole 40 mg EC Tab PO SCH (10:17)
[2016-10-29] MEDS: Albuterol-Ipratrop 3 mg / 0.5 (3 ml) UD INH SCH ×4 (01:24→19:47)
[2016-10-29] MEDS: MethylPREDNISolone 40 mg Vial IVP SCH ×3 (05:24→21:44)
[2016-10-29] MEDS: Budesonide 0.5 mg/2 ml Inhal Susp UD INH SCH (08:52)
[2016-10-29] MEDS: Pantoprazole 40 mg EC Tab PO SCH (11:13)
--- NOTE | 2016-10-29 11:14 | CP.PCM.PN ---
<CourtneyLoraine - Last Filed: 10/29/16 12:31> Subjective - Date & Time of Evaluation Date of Evaluation: 10/29/16 Time of Evaluation: 08:30 - Subjective Subjective: Medicine Progress Note- Dr. Cosby's Service: Patient seen and examined at bedside this AM. Patient reports he is feeling much better this morning. However, he continued to wheeze. Peak flow done today at bedside was 150 at maximum effort after nebulizer treatment 1 hour prior. Admits to cough. He is ambulating to bathroom without difficulty. Good appetite, . Denies chest pain or SOB at this time. Objective - Vital Signs/Intake and Output Vital Signs (last 24 hours): Temp Pulse Resp BP Pulse Ox 97.5 F L 99 H 20 107/61 96 10/29/16 08:12 10/29/16 08:12 10/29/16 08:12 10/29/16 08:12 10/29/16 08:12 - Medications Medications: Current Medications Albuterol/Ipratropium (Duoneb 3 Mg/0.5 Mg (3 Ml) Ud) 3 ml INH RQ6 [facility] Last Admin: 10/29/16 08:52 Dose: 3 ml Methylprednisolone (Solu-Medrol) 40 mg IVP Q8 [facility] Last Admin: 10/29/16 05:24 Dose: 40 mg Ondansetron HCl (Zofran Inj) 4 mg IVP Q6 PRN PRN Reason: Nausea/Vomiting Pantoprazole Sodium (Protonix Ec Tab) 40 mg PO DAILY [facility] Last Admin: 10/28/16 10:17 Dose: 40 mg Fluticasone/Salmeterol (Advair Diskus 250/50) 1 puff INH RQ12 [facility] - Labs Labs: 10/27/16 07:25 10/27/16 07:25 - Constitutional Appears: No Acute Distress - Head Exam Head Exam: NORMAL INSPECTION, NORMOCEPHALIC - Eye Exam Eye Exam: EOMI, Normal appearance - ENT Exam ENT Exam: Mucous Membranes Moist - Neck Exam Neck Exam: Full ROM, Normal Inspection - Respiratory Exam Respiratory Exam: Decreased Breath Sounds, Wheezes - Cardiovascular Exam Cardiovascular Exam: REGULAR RHYTHM, +S1, +S2 - GI/Abdominal Exam GI & Abdominal Exam: Soft. absent: Distended, Tenderness - Extremities Exam Extremities Exam: Full ROM, Normal Inspection - Neurological Exam Neurological Exam: Alert, Awake, Oriented x3 - Psychiatric Exam Psychiatric exam: Normal Affect, Normal Mood - Skin Skin Exam: Dry, Normal Color, Warm Assessment and Plan (1) Asthma exacerbation Assessment & Plan: Pt hemodynamically stable, no respiratory distress. Peak flow this AM 150 s/p neb treatment. 175 yesterday post treatment (150 before Tx). This low peak flow may be close to patient's baseline. Will adjust medications. Likely D/C in the AM with outpatient follow up. - D/C Pulmicort IH .5 mg Q12H - Start Advair Discus INH Q12H - Continue Solumedrol 40mg IV Q8H CXR 10/25 : no active disease. Status: Acute (2) Prophylactic measure Assessment & Plan: Proptinix 40 mg PO daily SCDs Status: Acute <HarjeetChase M - Last Filed: 10/29/16 13:42> Objective - Vital Signs/Intake and Output Vital Signs (last 24 hours): Temp Pulse Resp BP Pulse Ox 97.5 F L 99 H 20 107/61 96 10/29/16 08:12 10/29/16 08:12 10/29/16 08:12 10/29/16 08:12 10/29/16 08:12 - Medications Medications: Current Medications Albuterol/Ipratropium (Duoneb 3 Mg/0.5 Mg (3 Ml) Ud) 3 ml INH RQ6 [facility] Last Admin: 10/29/16 08:52 Dose: 3 ml Methylprednisolone (Solu-Medrol) 40 mg IVP Q8 [facility] Last Admin: 10/29/16 05:24 Dose: 40 mg Ondansetron HCl (Zofran Inj) 4 mg IVP Q6 PRN PRN Reason: Nausea/Vomiting Pantoprazole Sodium (Protonix Ec Tab) 40 mg PO DAILY [facility] Last Admin: 10/29/16 11:13 Dose: 40 mg Fluticasone/Salmeterol (Advair Diskus 250/50) 1 puff INH RQ12 [facility] - Labs Labs: 10/27/16 07:25 10/27/16 07:25 Attending/Attestation - Attestation I have personally seen and examined this patient.: Yes I have fully participated in the care of the patient.: Yes I have reviewed all pertinent clinical information, including history, physical exam and plan: Yes Notes (Text): 10/29/16 13:41 Patient was seen and examined at bedside. Breathing is stable Patient states that breathing is improving Continue steroids and add Advair I reviewed the chart, labs imaging studies and polymer materials consultant notes. I agree with above history and physical and assessment/pln by the resident. Discharge planning likely in next 24 hours
[2016-10-29] MEDS: Fluticasone-Salmeterol 250-50mcg Diskus INH SCH (19:46)
[2016-10-30] MEDS: Albuterol-Ipratrop 3 mg / 0.5 (3 ml) UD INH SCH ×2 (01:38→10:00)
[2016-10-30] MEDS: MethylPREDNISolone 40 mg Vial IVP SCH (05:24)
[2016-10-30 06:38] LABS: CHLORIDE 97 mmol/L (98-107); SODIUM 135 mmol/L (132-148)
[2016-10-30 06:39] LABS: POTASSIUM 4.2 mmol/L (3.6-5.2)
[2016-10-30 06:40] LABS: GFR AFRICAN-AMERICAN > 60
[2016-10-30 06:41] LABS: ALKALINE PHOSPHATASE 59 U/L (38-126); ALT/SGPT 15 U/L (21-72); AST/SGOT 15 U/L (17-59); BILIRUBIN,TOTAL 0.5 mg/dL (0.2-1.3); BLOOD UREA NITROGEN 13 mg/dL (9-20); CARBON DIOXIDE 26 mmol/L (22-30); GLUCOSE,RANDOM 125 mg/dL (75-110); TOTAL PROTEIN 7.5 g/dL (6.3-8.3)
[2016-10-30 06:42] LABS: CALCIUM 8.5 mg/dl (8.6-10.4)
[2016-10-30 06:58] LABS: BASO % 0.1 % (0.0-2.0); LYMPH # 1.9 K/uL (1.0-4.3); LYMPH % 13.6 % (20.0-40.0); MEAN CELL VOLUME 87.2 fL (80.0-94.0); MEAN CORPUSCULAR HEMOGLOBIN 29.5 pg (27.0-31.0); MEAN CORPUSCULAR HGB CONC 33.9 g/dL (33.0-37.0); MEAN PLATELET VOLUME 7.3 fL (7.2-11.7); MONO # 1.1 K/uL (0.0-0.8); MONO % 8.1 % (0.0-10.0); RED CELL DISTRIBUTION WIDTH 12.6 % (11.5-14.5); WHITE BLOOD COUNT 14.2 K/uL (4.8-10.8)
[2016-10-30 07:43] VITALS: BP 118/70; PULSE 80; TEMP 97.6; O2SAT 99
[2016-10-30] MEDS: Fluticasone-Salmeterol 250-50mcg Diskus INH SCH (07:57)
[2016-10-30] MEDS: Pantoprazole 40 mg EC Tab PO SCH (10:28)
--- NOTE | 2016-10-30 11:57 | CP.PCM.DIS ---
<Bhavna Guillen - Last Filed: 10/30/16 14:49> Provider - Provider Date of Admission: 10/26/16 10:01 Attending physician: Chase Cosby MD Time Spent in preparation of Discharge (in minutes): 35 Hospital Course - Lab Results Lab Results: Most Recent Lab Values WBC 14.2 K/uL (4.8-10.8) H 10/30/16 06:11 RBC 4.93 Mil/uL (4.40-5.90) 10/30/16 06:11 Hgb 14.6 g/dL (12.0-18.0) 10/30/16 06:11 Hct 43.0 % (35.0-51.0) 10/30/16 06:11 MCV 87.2 fL (80.0-94.0) 10/30/16 06:11 MCH 29.5 pg (27.0-31.0) 10/30/16 06:11 MCHC 33.9 g/dL (33.0-37.0) 10/30/16 06:11 RDW 12.6 % (11.5-14.5) 10/30/16 06:11 Plt Count 526 K/uL (130-400) H 10/30/16 06:11 MPV 7.3 fL (7.2-11.7) 10/30/16 06:11 Neut % (Auto) 78.2 % (50.0-75.0) H 10/30/16 06:11 Lymph % (Auto) 13.6 % (20.0-40.0) L 10/30/16 06:11 Winston % (Auto) 8.1 % (0.0-10.0) 10/30/16 06:11 Eos % (Auto) 0.0 % (0.0-4.0) 10/30/16 06:11 Baso % (Auto) 0.1 % (0.0-2.0) 10/30/16 06:11 Neut # 11.1 K/uL (1.8-7.0) H 10/30/16 06:11 Lymph # 1.9 K/uL (1.0-4.3) 10/30/16 06:11 Winston # 1.1 K/uL (0.0-0.8) H 10/30/16 06:11 Eos # 0.0 K/uL (0.0-0.7) 10/30/16 06:11 Baso # 0.0 K/uL (0.0-0.2) 10/30/16 06:11 Neutrophils % (Manual) 88 % (50-75) H 10/26/16 08:54 Band Neutrophils % 2 % (0-2) 10/26/16 08:54 Lymphocytes % (Manual) 9 % (20-40) L 10/26/16 08:54 Monocytes % (Manual) 1 % (0-10) 10/26/16 08:54 Platelet Estimate Slightly increased (NORMAL) H 10/26/16 08:54 Large Platelets Present 10/26/16 08:54 Giant Platelets Present 10/26/16 08:54 RBC Morphology Normal 10/26/16 08:54 Puncture Site Rr 10/25/16 11:33 pCO2 30 mm/Hg (35-45) L 10/25/16 11:33 pO2 61 mm/Hg (80-100) L 10/25/16 11:33 HCO3 23.2 mmol/L (21-28) 10/25/16 11:33 ABG pH 7.45 (7.35-7.45) 10/25/16 11:33 ABG Total CO2 21.8 mmol/L (22-28) L 10/25/16 11:33 ABG O2 Saturation 93.5 % (95-98) L 10/25/16 11:33 ABG Base Excess -2.0 mmol/L (-2.0-3.0) 10/25/16 11:33 ABG Hemoglobin 14.6 g/dL (11.7-17.4) 10/25/16 11:33 ABG Carboxyhemoglobin 1.7 % (0.5-1.5) H 10/25/16 11:33 POC ABG HHb (Measured) 6.3 % (0.0-5.0) H 10/25/16 11:33 ABG Methemoglobin 1.2 % (0.0-3.0) 10/25/16 11:33 Von Test Pos 10/25/16 11:33 A-a O2 Difference 51.0 mm/Hg 10/25/16 11:33 Respiratory Index 0.8 10/25/16 11:33 Hgb O2 Saturation 90.9 % (95.0-98.0) L 10/25/16 11:33 FiO2 21.0 % 10/25/16 11:33 Sodium 135 mmol/L (132-148) 10/30/16 06:11 Potassium 4.2 mmol/L (3.6-5.2) 10/30/16 06:11 Chloride 97 mmol/L (98-107) L 10/30/16 06:11 Carbon Dioxide 26 mmol/L (22-30) 10/30/16 06:11 Anion Gap 16 (10-20) 10/30/16 06:11 BUN 13 mg/dL (9-20) 10/30/16 06:11 Creatinine 0.8 MG/DL (0.8-1.5) 10/30/16 06:11 Est GFR ( Amer) > 60 10/30/16 06:11 Est GFR (Non-Af Amer) > 60 10/30/16 06:11 Random Glucose 125 mg/dL (75-110) H 10/30/16 06:11 Calcium 8.5 mg/dl (8.6-10.4) L 10/30/16 06:11 Phosphorus 4.2 mg/dL (2.5-4.5) 10/26/16 08:54 Magnesium 2.0 mg/dL (1.6-2.3) 10/30/16 06:11 Total Bilirubin 0.5 mg/dL (0.2-1.3) 10/30/16 06:11 AST 15 U/L (17-59) L D 10/30/16 06:11 ALT 15 U/L (21-72) L 10/30/16 06:11 Alkaline Phosphatase 59 U/L (38-126) 10/30/16 06:11 Total Protein 7.5 g/dL (6.3-8.3) 10/30/16 06:11 Albumin 3.8 g/dL (3.5-5.0) 10/30/16 06:11 Globulin 3.7 gm/dL (2.2-3.9) 10/30/16 06:11 Albumin/Globulin Ratio 1.0 (1.0-2.1) 10/30/16 06:11 Urine Color Yellow (YELLOW) 10/25/16 12:21 Urine Clarity Clear (Clear) 10/25/16 12:21 Urine pH 6.0 (5.0-8.0) 10/25/16 12:21 Ur Specific Moro 1.027 (1.003-1.030) 10/25/16 12:21 Urine Protein Negative mg/dL (NEGATIVE) 10/25/16 12:21 Urine Glucose (UA) Normal mg/dL (Normal) 10/25/16 12:21 Urine Ketones 1+ mg/dL (NEGATIVE) H 10/25/16 12:21 Urine Blood Negative (NEGATIVE) 10/25/16 12:21 Urine Nitrate Negative (NEGATIVE) 10/25/16 12:21 Urine Bilirubin Negative (NEGATIVE) 10/25/16 12:21 Urine Urobilinogen 2.0 mg/dL (0.2-1.0) 10/25/16 12:21 Ur Leukocyte Esterase Neg Mariana/uL (Negative) 10/25/16 12:21 Urine WBC (Auto) 1 /hpf (0-5) 10/25/16 12:21 Urine RBC (Auto) 1 /hpf (0-3) 10/25/16 12:21 - Hospital Course Hospital Course: Upon Admission: Medicine Note for Dr. Cosby, CC: SOB HPI: 21M with PMHx of asthma came in to the ED complaining of shortness of breath and wheezing. He states that he was recently in the hospital last week for tonsillitis and was discharged with antibiotics which he completed his course. He states that since his illness his breathing has been getting progressively worse where he would need his nebulizer 3-4 times a day, and would feel short of breath right after its use. He states that his SOB gets worse with exertion. He states that he has been hospitalized in the past for asthma exacerbations when he was a child and does not recall ever being intubated. He does not have a PMD and states he gets his medications from his cousins which include an Albuterol inhaler and a nebulizer. He states that he usually uses his inhaler 2 times a day and his nebulizer as much as 4 times a day. He admits to dry coughing, sob, chest discomfort from coughing, and wheezing. He denies any chest pain, palpitations, nausea, hematemesis, vomiting , fever, chills, recent travel, or sick contacts. PMD: NONE PMHx: Asthma PSHx: Denied Meds: albuterol and nebulizer All: seafood SHx: Denied any tobacco, alcohol, or illicit drug use FHx: Asthma Throughout the hospital course: Patient was admitted for asthma exacerbation. Patient was placed on IV steriods , duonebs treament, and and INH steriod. Patient's peak flow was evaluated throughout the hospital stay ranging 150-175. Patient was discharged with prescriptions for a nebulizer with albuterol, albuterol HFA, symbicort (INH steroid), and a steroid taper. Patient encouraged to follow up with PCP and with a rn security. This is a brief summary of the patient's hospital course. Please review EMR for full course. Discharge Exam - Head Exam Head Exam: NORMAL INSPECTION, NORMOCEPHALIC - Eye Exam Eye Exam: Normal appearance - ENT Exam ENT Exam: Mucous Membranes Moist - Respiratory Exam Respiratory Exam: Wheezes - Cardiovascular Exam Cardiovascular Exam: REGULAR RHYTHM - GI/Abdominal Exam GI & Abdominal Exam: Normal Bowel Sounds, Soft. absent: Distended, Unremarkable - Extremities Exam Extremities exam: normal inspection, pedal pulses present - Neurological Exam Neurological exam: Alert, Oriented x3 - Skin Skin Exam: Dry, Intact, Normal Color, Warm Discharge Plan - Discharge Medications Prescriptions: Albuterol 0.083% [Albuterol Sulfate 3 Ml] 3 ml IH Q6H PRN 30 Days PRN Reason: Wheezing Albuterol HFA [Ventolin HFA 90 mcg/actuation (8 g)] 2 puff IH Q4H PRN #1 puff PRN Reason: Shortness Of Breath Budesonide/Formoterol Fumarate [Symbicort] 1 aer IH Q12H #1 aer Nebulizer [Aeroneb Go Nebulizer] 1 each MC DAILY #1 each predniSONE [Prednisone] 10 mg PO TID #9 tab predniSONE [Prednisone] 10 mg PO DAILY #3 tab predniSONE [predniSONE Tab] 20 mg PO BID #6 tab predniSONE [predniSONE Tab] 20 mg PO DAILY #3 tab - Follow Up Plan Condition: STABLE Disposition: HOME/ ROUTINE Instructions: Albuterol (By breathing), Prednisone (By mouth), Budesonide ( Into the nose), Asthma (DC), How to Use a Nebulizer (DC) Additional Instructions: Patient is to start using albuteral HFA Q4H as needed for shortness of breath. He is also prescribed Symbicort 1 puff every 12 hours EVERY day. Patient was given albuterol nebulizer which he can use every 6hours as needed. Patient is to also continue a steroid taper. 20mg twice a day for 3 days. 10mg by mouth three times a day for 3 days. 20mg by mouth once daily for 3 days. and 10mg by mouth once daily for 3 days. Patient is to follow up with his primary care doctor within 1-2 weeks. He is also recommended to see a pulmnologist as outpatient for better management of his Asthma. Patient encouraged to return to the ED if his symptoms worsen or return. Referrals: Collins Escoto MD [Staff Provider] - [facility] [Outside] <Chuck Barker - Last Filed: 10/30/16 16:45> Provider - Provider Date of Admission: 10/26/16 10:01 Attending physician: Chase Cosby MD Hospital Course - Lab Results Lab Results: Most Recent Lab Values WBC 14.2 K/uL (4.8-10.8) H 10/30/16 06:11 RBC 4.93 Mil/uL (4.40-5.90) 10/30/16 06:11 Hgb 14.6 g/dL (12.0-18.0) 10/30/16 06:11 Hct 43.0 % (35.0-51.0) 10/30/16 06:11 MCV 87.2 fL (80.0-94.0) 10/30/16 06:11 MCH 29.5 pg (27.0-31.0) 10/30/16 06:11 MCHC 33.9 g/dL (33.0-37.0) 10/30/16 06:11 RDW 12.6 % (11.5-14.5) 10/30/16 06:11 Plt Count 526 K/uL (130-400) H 10/30/16 06:11 MPV 7.3 fL (7.2-11.7) 10/30/16 06:11 Neut % (Auto) 78.2 % (50.0-75.0) H 10/30/16 06:11 Lymph % (Auto) 13.6 % (20.0-40.0) L 10/30/16 06:11 Winston % (Auto) 8.1 % (0.0-10.0) 10/30/16 06:11 Eos % (Auto) 0.0 % (0.0-4.0) 10/30/16 06:11 Baso % (Auto) 0.1 % (0.0-2.0) 10/30/16 06:11 Neut # 11.1 K/uL (1.8-7.0) H 10/30/16 06:11 Lymph # 1.9 K/uL (1.0-4.3) 10/30/16 06:11 Winston # 1.1 K/uL (0.0-0.8) H 10/30/16 06:11 Eos # 0.0 K/uL (0.0-0.7) 10/30/16 06:11 Baso # 0.0 K/uL (0.0-0.2) 10/30/16 06:11 Neutrophils % (Manual) 88 % (50-75) H 10/26/16 08:54 Band Neutrophils % 2 % (0-2) 10/26/16 08:54 Lymphocytes % (Manual) 9 % (20-40) L 10/26/16 08:54 Monocytes % (Manual) 1 % (0-10) 10/26/16 08:54 Platelet Estimate Slightly increased (NORMAL) H 10/26/16 08:54 Large Platelets Present 10/26/16 08:54 Giant Platelets Present 10/26/16 08:54 RBC Morphology Normal 10/26/16 08:54 Puncture Site Rr 10/25/16 11:33 pCO2 30 mm/Hg (35-45) L 10/25/16 11:33 pO2 61 mm/Hg (80-100) L 10/25/16 11:33 HCO3 23.2 mmol/L (21-28) 10/25/16 11:33 ABG pH 7.45 (7.35-7.45) 10/25/16 11:33 ABG Total CO2 21.8 mmol/L (22-28) L 10/25/16 11:33 ABG O2 Saturation 93.5 % (95-98) L 10/25/16 11:33 ABG Base Excess -2.0 mmol/L (-2.0-3.0) 10/25/16 11:33 ABG Hemoglobin 14.6 g/dL (11.7-17.4) 10/25/16 11:33 ABG Carboxyhemoglobin 1.7 % (0.5-1.5) H 10/25/16 11:33 POC ABG HHb (Measured) 6.3 % (0.0-5.0) H 10/25/16 11:33 ABG Methemoglobin 1.2 % (0.0-3.0) 10/25/16 11:33 Von Test Pos 10/25/16 11:33 A-a O2 Difference 51.0 mm/Hg 10/25/16 11:33 Respiratory Index 0.8 10/25/16 11:33 Hgb O2 Saturation 90.9 % (95.0-98.0) L 10/25/16 11:33 FiO2 21.0 % 10/25/16 11:33 Sodium 135 mmol/L (132-148) 10/30/16 06:11 Potassium 4.2 mmol/L (3.6-5.2) 10/30/16 06:11 Chloride 97 mmol/L (98-107) L 10/30/16 06:11 Carbon Dioxide 26 mmol/L (22-30) 10/30/16 06:11 Anion Gap 16 (10-20) 10/30/16 06:11 BUN 13 mg/dL (9-20) 10/30/16 06:11 Creatinine 0.8 MG/DL (0.8-1.5) 10/30/16 06:11 Est GFR ( Amer) > 60 10/30/16 06:11 Est GFR (Non-Af Amer) > 60 10/30/16 06:11 Random Glucose 125 mg/dL (75-110) H 10/30/16 06:11 Calcium 8.5 mg/dl (8.6-10.4) L 10/30/16 06:11 Phosphorus 4.2 mg/dL (2.5-4.5) 10/26/16 08:54 Magnesium 2.0 mg/dL (1.6-2.3) 10/30/16 06:11 Total Bilirubin 0.5 mg/dL (0.2-1.3) 10/30/16 06:11 AST 15 U/L (17-59) L D 10/30/16 06:11 ALT 15 U/L (21-72) L 10/30/16 06:11 Alkaline Phosphatase 59 U/L (38-126) 10/30/16 06:11 Total Protein 7.5 g/dL (6.3-8.3) 10/30/16 06:11 Albumin 3.8 g/dL (3.5-5.0) 10/30/16 06:11 Globulin 3.7 gm/dL (2.2-3.9) 10/30/16 06:11 Albumin/Globulin Ratio 1.0 (1.0-2.1) 10/30/16 06:11 Urine Color Yellow (YELLOW) 10/25/16 12:21 Urine Clarity Clear (Clear) 10/25/16 12:21 Urine pH 6.0 (5.0-8.0) 10/25/16 12:21 Ur Specific Moro 1.027 (1.003-1.030) 10/25/16 12:21 Urine Protein Negative mg/dL (NEGATIVE) 10/25/16 12:21 Urine Glucose (UA) Normal mg/dL (Normal) 10/25/16 12:21 Urine Ketones 1+ mg/dL (NEGATIVE) H 10/25/16 12:21 Urine Blood Negative (NEGATIVE) 10/25/16 12:21 Urine Nitrate Negative (NEGATIVE) 10/25/16 12:21 Urine Bilirubin Negative (NEGATIVE) 10/25/16 12:21 Urine Urobilinogen 2.0 mg/dL (0.2-1.0) 10/25/16 12:21 Ur Leukocyte Esterase Neg Mariana/uL (Negative) 10/25/16 12:21 Urine WBC (Auto) 1 /hpf (0-5) 10/25/16 12:21 Urine RBC (Auto) 1 /hpf (0-3) 10/25/16 12:21 Attending/Attestation - Attestation I have personally seen and examined this patient.: Yes I have fully participated in the care of the patient.: Yes I have reviewed all pertinent clinical information, including history, physical exam and plan: Yes Notes (Text): 10/30/16 16:43 Medical attending: reviewed the above note by the resident and agree The patient will need to be on a long tapering dose of prednisone, he will also need fast acting and long acting inhalers as well If he is not able to follow up with a physician then he can come to the [facility] here at [facility] Chuck Barker 10/30/16 16:44
[2016-10-30] MEDS ORDERED: Pneumococcal 23-Valent Vaccine IM ONE (12:04)
--- NOTE | 2016-11-03 11:32 | CARD ---
APPROVED REPORT EKG Measurement Heart [id number] <Conclusion> Normal sinus rhythm Normal ECG
== END 2016-10-30 13:42 | disposition home or self-care (01) | DRG 97 ==
LOC: C.ER 07:18 → C.9E 11:01 → C.5T 12:47 → OBSVTOIN 10-26 10:01 → C.3T 10-27 08:55
PROVIDERS: ADMIT Internal Medicine; ATTEND Internal Medicine
DX: J45.901 Unspecified asthma with (acute) exacerbation (principal); Z82.5 Family history of asthma and other chronic lower respiratory diseases

== ENCOUNTER 2017-03-28 07:53 | Emergency (ER) | payer MEDICAID ==
[2017-03-28 07:53] VITALS: BMI 24.4
--- NOTE | 2017-03-28 08:13 | C.PDOC ---
History Of Present Illness 22 y/o male with PMHx of Asthma brought to ED by EMS for Asthma exacerbation. Patient states he has been experiencing difficulty breathing for 2 days and called EMS for worsening of symptoms. On route patient received solumedrol and x1 breathing treatment. Patient denies cough, chest pain, shortness of breath, nausea or any other complaints at this time. Time Seen by Provider: 03/28/17 07:54 Chief Complaint (Nursing): Shortness Of Breath History Per: Patient, EMS History/Exam Limitations: no limitations Onset/Duration Of Symptoms: Days Current Symptoms Are (Timing): Still Present Initiating Event: Upper Respiratory Illness Past Medical History Reviewed: Historical Data, Nursing Documentation, Vital Signs Vital Signs: Last Vital Signs Temp 98 F 03/28/17 13:05 Pulse 98 H 03/28/17 13:05 Resp 20 03/28/17 13:05 BP 135/60 03/28/17 13:05 Pulse Ox 97 03/28/17 13:05 - Medical History PMH: Asthma Surgical History: No Surg Hx Family History: States: No Known Family Hx - Social History Hx Tobacco Use: Yes Hx Alcohol Use: No Hx Substance Use: No - Immunization History Hx Tetanus Toxoid Vaccination: No Hx Influenza Vaccination: No Hx Pneumococcal Vaccination: No Review Of Systems Cardiovascular: Negative for: Chest Pain Respiratory: Negative for: Shortness of Breath Gastrointestinal: Negative for: Nausea Neurological: Negative for: Dizziness Physical Exam - Physical Exam Appears: Non-toxic, No Acute Distress Skin: Normal Color, Warm, Dry, No Rash Head: Atraumatic, Normacephalic Oral Mucosa: Moist Throat: Normal, No Erythema, No Exudate Neck: Normal ROM, Supple Chest: Symmetrical Cardiovascular: Rhythm Regular Respiratory: No Rales, No Rhonchi, Wheezing (bilateral) Extremity: Normal ROM, No Pedal Edema Neurological/Psych: Oriented x3, Normal Speech (speaking in full sentences) ED Course And Treatment O2 Sat by Pulse Oximetry: 100 (RA) Pulse Ox Interpretation: Normal Progress Note: Treated with duoneb x 2. Lungs few wheezing on re-evaluation. feeling better O2 sat 87% on RA Reassessment Condition: Improved Medical Decision Making Medical Decision Making: On re-evaluation lung clear in no distress Disposition Counseled Patient/Family Regarding: Diagnosis, Need For Followup, Rx Given - Disposition Referrals: [facility] [Outside] [facility] [Outside] Disposition: HOME/ ROUTINE Disposition Time: 13:00 Condition: STABLE Prescriptions: Albuterol HFA [Ventolin HFA 90 mcg/actuation (8 g)] 2 puff IH [id number] #1 unit predniSONE [Prednisone] 60 mg PO DAILY #4 tab Instructions: Asthma (ED), How to Use a Nebulizer (ED) Forms: [employer] (Finnish) - POA Present On Arrival: None - Clinical Impression Clinical Impression: Exacerbation of asthma - 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 - Scribe Statement The provider has reviewed the documentation as recorded by the Shawnibpranav Juan All medical record entries made by the Len were at my direction and personally dictated by me. I have reviewed the chart and agree that the record accurately reflects my personal performance of the history, physical exam, medical decision making, and the department course for this patient. I have also personally directed, reviewed, and agree with the discharge instructions and disposition.
[2017-03-28 08:15] VITALS: RESP 20
[2017-03-28] MEDS: Albuterol-Ipratrop 3 mg / 0.5 (3 ml) UD IH SCH ×2 (08:40→09:35)
[2017-03-28] MEDS ORDERED: Albuterol-Ipratrop 3 mg / 0.5 (3 ml) UD ONE (09:05)
[2017-03-28 13:06] VITALS: BP 135/60; PULSE 98; TEMP 98
[2017-03-28 17:38] VITALS: O2SAT 100
== END 2017-03-28 13:00 | disposition home or self-care (01) ==
LOC: C.ER 07:53
DX: J45.901 Unspecified asthma with (acute) exacerbation (principal)

== ENCOUNTER 2017-06-13 23:20 | Emergency (ER) | payer MEDICAID ==
[2017-06-13 23:20] VITALS: BMI 24.4
--- NOTE | 2017-06-14 00:10 | C.PDOC ---
History Of Present Illness 22 year old male presents to the ED for evaluation of left knee pain which gradually developed over the past 2 days. Patient states he was playing basketball when he jumped and landed the wrong way, and heard a "snap" in his left knee. He states the pain is localized and worsens with ambulation. Otherwise, patient admits he is able to ambulate. He denies deformities or sensorivascular deficits. Time Seen by Provider: 06/13/17 23:22 Chief Complaint (Nursing): Lower Extremity Problem/Injury History Per: Patient History/Exam Limitations: no limitations Onset/Duration Of Symptoms: Gradual (2) Current Symptoms Are (Timing): Still Present Additional History Per: Patient Past Medical History Reviewed: Historical Data, Nursing Documentation, Vital Signs Vital Signs: Last Vital Signs Temp 98 F 06/14/17 02:06 Pulse 78 06/14/17 02:06 Resp 20 06/14/17 02:06 BP 100/50 L 06/14/17 02:06 Pulse Ox 96 06/19/17 21:47 - Medical History PMH: Asthma Denies: Chronic Kidney Disease Surgical History: No Surg Hx Family History: States: Unknown Family Hx - Social History Hx Tobacco Use: Yes Hx Alcohol Use: No Hx Substance Use: No - Immunization History Hx Tetanus Toxoid Vaccination: No Hx Influenza Vaccination: No Hx Pneumococcal Vaccination: No Review Of Systems Musculoskeletal: Positive for: Other (left knee pain ) Neurological: Negative for: Weakness, Numbness Physical Exam - Physical Exam Appears: Well, Non-toxic, No Acute Distress Skin: Normal Color, Warm, No Rash, No Ecchymosis Extremity: Normal ROM (Left knee without difficulty), Tenderness (inferior aspect left knee), No Deformity, No Swelling Neurological/Psych: Oriented x3, Normal Speech, Normal Motor, Normal Sensation, Normal Reflexes ED Course And Treatment O2 Sat by Pulse Oximetry: 96 (on RA) Pulse Ox Interpretation: Normal - Other Rad Left knee X-Ray: Interpreted by Me, Viewed By Me Interpretation: (-) acute fx or dislocation Progress Note: Left knee XR ordered and reviewed. Motrin PO administered. On re-eval, pt is afebrile, hemodynamicaly stable. Non-toxic. Ambulatoy rin ED with stable gait. Left knee: mild tenderness inferior aspect. FAROM, no neurovascular deficits, no deformity. Imaging review and appears normal. Pt advised. ref. to F/u with Ortho in 2-3 days for re-eavl. return if any new changes. Disposition Counseled Patient/Family Regarding: Studies Performed, Diagnosis, Need For Followup, Rx Given - Disposition Referrals: Pino Nevarez MD [Staff Provider] - Disposition: HOME/ ROUTINE Disposition Time: 01:03 Condition: STABLE Additional Instructions: RICE-REST, ICE, COMPRESSION, ELEVATION MARIO WRAP OR KNEE BRACE FOR 2-3 WEEKS TAKE IBUPROFEN TWICE DAILY FOR 1 WEEK NO PHYSICAL ACTIVITY FOR 2 WEEK FOLLOW UP WITH ORTHOPEDIST IN 2-3 DAYS FOR RE-EVALUATION, MRI OF LEFT KNEE NEED/IF PAIN PERSIST. RETURN TO ED IF ANY NEW CHANGES. Prescriptions: Ibuprofen [Motrin Tab] 600 mg PO Q6 #20 tab Instructions: Knee Sprain (ED) Forms: [employer] (New Zealander) - Clinical Impression Clinical Impression: Knee sprain - PA / PRODUCT EXPERT / Resident Statement MD/DO has reviewed & agrees with the documentation as recorded. - Scribe Statement The provider has reviewed the documentation as recorded by the Scribe (Alayna Ahmadi) All medical record entries made by the Scribe were at my direction and personally dictated by me. I have reviewed the chart and agree that the record accurately reflects my personal performance of the history, physical exam, medical decision making, and the department course for this patient. I have also personally directed, reviewed, and agree with the discharge instructions and disposition.
[2017-06-14 02:07] VITALS: BP 100/50; PULSE 78; RESP 20; TEMP 98
--- NOTE | 2017-06-14 08:33 | RAD ---
PROCEDURE: Left Knee Radiographs. HISTORY: Pain. COMPARISON: None. FINDINGS: BONES: Normal. No fracture. JOINTS: Normal. No osteoarthritis. JOINT EFFUSION: None. OTHER FINDINGS: None. IMPRESSION: Normal radiographs of the left knee.
[2017-06-19 21:42] VITALS: O2SAT 96
== END 2017-06-14 02:06 | disposition home or self-care (01) ==
LOC: C.ER 23:20
DX: S83.92XA Sprain of unspecified site of left knee, initial encounter (principal); X50.0XXA Overexertion from strenuous movement or load, initial encounter; Y93.67 Activity, basketball; Y92.89 Other specified places as the place of occurrence of the external cause

== ENCOUNTER 2018-01-27 22:02 | Emergency (ER) | payer MEDICAID ==
[2018-01-27 22:03] VITALS: BMI 24.4
[2018-01-27 22:18] VITALS: RESP 18
[2018-01-27] MEDS ORDERED: Tetracaine 0.5% Ophth (OR ONLY) ONE (22:28)
[2018-01-27] MEDS ORDERED: Fluorescein 1 mg Ophthalmic Strip ONE (22:46)
[2018-01-27] MEDS ORDERED: Tobramycin 0.3% OPH OINT OU STA (23:23)
--- NOTE | 2018-01-27 23:27 | C.PDOC ---
History Of Present Illness 23-year-old male presents to the ED for evaluation of right eye pain after he sustained an injury to the area earlier today. Patient states he was playing basketball when someone accidentally poked him in the eye with their fingernail. Patient is complaining of moderate pain to the eye. He denies headache, LOC, vision change. Time Seen by Provider: 01/27/18 22:26 Chief Complaint (Nursing): Eye Problem History Per: Patient History/Exam Limitations: no limitations Onset/Duration Of Symptoms: Hrs Current Symptoms Are (Timing): Still Present Injury To Eye?: Yes Quality: "Pain" Associated Symptoms: Pain. denies: Decreased Vision Additional History Per: Patient Past Medical History Reviewed: Historical Data, Nursing Documentation, Vital Signs Vital Signs: Last Vital Signs Temp 98.3 F 01/27/18 23:58 Pulse 89 01/27/18 23:58 Resp 18 01/27/18 23:58 BP 110/72 01/27/18 23:58 Pulse Ox 97 01/28/18 04:02 - Medical History PMH: Asthma Denies: Chronic Kidney Disease Surgical History: No Surg Hx Family History: States: Unknown Family Hx - Social History Hx Tobacco Use: Yes Hx Alcohol Use: No Hx Substance Use: No - Immunization History Hx Tetanus Toxoid Vaccination: No Hx Influenza Vaccination: Yes Hx Pneumococcal Vaccination: No Review Of Systems Eyes: Positive for: Pain (right ). Negative for: Vision Change Neurological: Negative for: Other (LOC ) Physical Exam - Physical Exam Appears: Non-toxic, No Acute Distress Skin: Normal Color, Warm, Dry Head: Atraumatic, Normacephalic Eye(s): right: Other (conjunctival injection with moderate tearing , right lower corneal abrasion and conjunctival abrasion), left: Normal Inspection Oral Mucosa: Moist Neck: Normal ROM, Supple Chest: Symmetrical, No Deformity, No Tenderness Cardiovascular: Rhythm Regular Respiratory: Normal Breath Sounds Extremity: Normal ROM Neurological/Psych: Oriented x3, Normal Speech, Normal Cognition ED Course And Treatment O2 Sat by Pulse Oximetry: 97 (on RA) Pulse Ox Interpretation: Normal Progress Note: Initially unable to perform visual acuity test, since patient was unable to open his right eye due to the pain. Tetracaine drops applied. Visual acuity done at bedside and found to be 20/25 in both eyes. fluorescein stain shows conjunctival abrasion with small corneal abrsion at the lower part of the right cornea. On re-exam, patient is resting comfortably, showing no signs of distress and is stable for discharge. Patient is advised to follow up with eye care within 1-2 days for further evaluation and/or return to the ED if symptoms persist or worsen. Disposition Counseled Patient/Family Regarding: Diagnosis, Need For Followup, Rx Given - Disposition Referrals: Antione Perez [Staff Provider] - Disposition: HOME/ ROUTINE Disposition Time: 23:25 Condition: STABLE Additional Instructions: please follow up with Eye doctor Take meds as directed Return to ER if worse Prescriptions: Ibuprofen [Motrin] 600 mg PO Q6H #20 tab Instructions: Corneal Abrasion (DC) Forms: [employer] ([place]), Work Excuse - Clinical Impression Clinical Impression: Corneal abrasion - PA / SURFACE GRINDER / Resident Statement MD/DO has reviewed & agrees with the documentation as recorded. - Scribe Statement The provider has reviewed the documentation as recorded by the Scribe (Alayna Ahmadi) All medical record entries made by the Scribe were at my direction and personally dictated by me. I have reviewed the chart and agree that the record accurately reflects my personal performance of the history, physical exam, medical decision making, and the department course for this patient. I have also personally directed, reviewed, and agree with the discharge instructions and disposition.
[2018-01-27] MEDS ORDERED: Tobramycin 0.3% OPH OINT ONE (23:36)
[2018-01-27 23:59] VITALS: BP 110/72; PULSE 89; TEMP 98.3
[2018-01-28 02:52] VITALS: O2SAT 97
== END 2018-01-28 00:01 | disposition home or self-care (01) ==
LOC: C.ER 22:02
DX: S05.01XA Injury of conjunctiva and corneal abrasion without foreign body, right eye, initial encounter (principal); W51.XXXA Accidental striking against or bumped into by another person, initial encounter; Y93.67 Activity, basketball

== ENCOUNTER 2018-09-08 18:18 | Emergency (ER) | payer MEDICAID, OTHER ==
[2018-09-08 18:19] VITALS: BMI 24.4
[2018-09-08] MEDS ORDERED: Albuterol-Ipratrop 3 mg / 0.5 (3 ml) UD ONE ×2 (18:28→18:58)
[2018-09-08] MEDS: Albuterol-Ipratrop 3 mg / 0.5 (3 ml) UD IH SCH (18:59)
[2018-09-08 19:19] VITALS: RESP 16
--- NOTE | 2018-09-08 19:51 | C.PDOC ---
History Of Present Illness Patient is a 23-year-old male with a history of asthma. He presents to the emergency department complaining of chest tightness and wheezing. He has a nebulizer but states the medication is not helping him. He has had asthma since childhood, has had multiple admissions, no ICU admissions, no intubations. Last admission was last year. Patient denies fever, no cough, no nausea no vomiting no diarrhea. Time Seen by Provider: 09/08/18 18:38 Chief Complaint (Nursing): Shortness Of Breath Past Medical History Vital Signs: Last Vital Signs Temp 98 F 09/08/18 19:18 Pulse 76 09/08/18 19:18 Resp 16 09/08/18 19:18 BP 108/52 L 09/08/18 19:18 Pulse Ox 98 09/08/18 19:18 - Medical History PMH: Asthma Denies: Chronic Kidney Disease Family History: States: Unknown Family Hx - Social History Hx Tobacco Use: Yes Hx Alcohol Use: No Hx Substance Use: No - Immunization History Hx Tetanus Toxoid Vaccination: No Hx Influenza Vaccination: No Hx Pneumococcal Vaccination: No Review Of Systems Constitutional: Negative for: Fever, Chills Respiratory: Positive for: Wheezing, Other (chest tightness ) Gastrointestinal: Negative for: Nausea, Vomiting, Diarrhea Physical Exam - Physical Exam Appears: Non-toxic, No Acute Distress, Other (afebrile ) Skin: Normal Color, Warm, Dry Head: Atraumatic, Normacephalic Eye(s): bilateral: Normal Inspection Oral Mucosa: Moist Neck: Supple Chest: Symmetrical, No Deformity, No Tenderness Cardiovascular: Rhythm Regular, No Murmur Respiratory: No Rales, No Rhonchi, Wheezing (bilaterally ) Gastrointestinal/Abdominal: Soft, No Tenderness, No Guarding, No Rebound Extremity: Normal ROM, Capillary Refill (less than 2 seconds ) Neurological/Psych: Oriented x3, Normal Speech, Normal Cognition ED Course And Treatment O2 Sat by Pulse Oximetry: 98 Medical Decision Making Medical Decision Making: Progress: Albuterol INH and Prednisone PO given. After three nebulizer treatments and Prednisone, patient is feeling better. On reevaluation he still wheezing. Disposition Counseled Patient/Family Regarding: Diagnosis, Need For Followup, Rx Given - Disposition Disposition: HOME/ ROUTINE Disposition Time: 22:32 Condition: STABLE Prescriptions: Ibuprofen [Motrin] 600 mg PO TID #15 tab Prednisone [Deltasone] 60 mg PO DAILY #15 tablet Instructions: Asthma, Adult (DC), Knee Sprain (DC) Forms: [facility] ([place] Citizen), General Discharge Instructions, School Excuse - Clinical Impression Clinical Impression: Knee sprain, Exacerbation of asthma - Scribe Statement The provider has reviewed the documentation as recorded by the Scribe (Alayna Ahmadi) Provider Attestation: All medical record entries made by the Scribe were at my direction and personally dictated by me. I have reviewed the chart and agree that the record accurately reflects my personal performance of the history, physical exam, medical decision making, and the department course for this patient. I have also personally directed, reviewed, and agree with the discharge instructions and disposition.
[2018-09-08] MEDS ORDERED: Magnesium Sulfate 1 gm in D5W 2 GM/200 ML BAG IVPB ONE (20:41)
[2018-09-08] MEDS: Magnesium Sulfate 1 gm in D5W 1 GM/100 ML BAG IVPB SCH ×2 (20:43→21:09)
[2018-09-08 21:00] VITALS: BP 110/50; PULSE 75; TEMP 98.2
[2018-09-08] MEDS ORDERED: Albuterol 0.083% Inhal Sol (2.5 mg/3 mL) UD INH SCH (21:30)
[2018-09-08] MEDS ORDERED: Albuterol 0.083% Inhal Sol (2.5 mg/3 mL) UD ONE ×2 (21:48→21:49)
[2018-09-08 22:40] VITALS: O2SAT 98
== END 2018-09-08 22:47 | disposition home or self-care (01) ==
LOC: C.ER 18:18
DX: J45.901 Unspecified asthma with (acute) exacerbation (principal); S83.92XA Sprain of unspecified site of left knee, initial encounter; X50.9XXA Other and unspecified overexertion or strenuous movements or postures, initial encounter; Y93.67 Activity, basketball; Y92.838 Other recreation area as the place of occurrence of the external cause
CPT/HCPCS: 94150; 94640; 96365; 96366; 99285; J3475

== ENCOUNTER 2018-09-10 09:27 | Emergency (ER) | payer OTHER ==
[2018-09-10 09:27] VITALS: BMI 24.4
[2018-09-10 09:55] VITALS: BP 113/68; PULSE 62; RESP 20; TEMP 97.9; O2SAT 97
[2018-09-10] MEDS ORDERED: Naproxen 550 mg Tab PO STA (10:14)
[2018-09-10] MEDS ORDERED: Naproxen 550 mg Tab PO ONE (10:29)
--- NOTE | 2018-09-10 10:42 | C.PDOC ---
History Of Present Illness Pt c/o left knee pain and swelling after playing basketball. Denies recent trauma. Time Seen by Provider: 09/10/18 10:08 Chief Complaint (Nursing): Lower Extremity Problem/Injury History Per: Patient Onset/Duration Of Symptoms: Days (chronic), Waxing/Waning Current Symptoms Are (Timing): Still Present Severity: Moderate Additional History Per: Prior Records - Knee Alleviating Factor(s): OTC Pain Medication Past Medical History Reviewed: Historical Data, Nursing Documentation, Vital Signs Vital Signs: Last Vital Signs Temp 97.9 F 09/10/18 09:53 Pulse 62 09/10/18 09:53 Resp 20 09/10/18 09:53 BP 113/68 09/10/18 09:53 Pulse Ox 97 09/10/18 09:53 - Medical History PMH: Asthma Family History: States: Unknown Family Hx - Social History Hx Tobacco Use: Yes Hx Alcohol Use: No Hx Substance Use: No - Immunization History Hx Tetanus Toxoid Vaccination: No Hx Influenza Vaccination: No Hx Pneumococcal Vaccination: No Review Of Systems Except As Marked, All Systems Reviewed And Found Negative. Constitutional: Negative for: Fever, Weakness Cardiovascular: Negative for: Chest Pain Respiratory: Negative for: Shortness of Breath, Hemoptysis Gastrointestinal: Negative for: Abdominal Pain Musculoskeletal: Negative for: Back Pain, Foot Pain Skin: Negative for: Rash Neurological: Negative for: Weakness, Numbness Physical Exam - Physical Exam Appears: Non-toxic, No Acute Distress Skin: Normal Color, Warm, Dry, No Rash Head: Atraumatic, Normacephalic Neck: Normal ROM, Supple Extremity: Normal ROM, Tenderness (mild soft tissue tenderness of left knee), No Calf Tenderness, No Deformity, Swelling (left knee joint effusion) Extremity: Bilateral: Normal Color And Temperature Neurological/Psych: Oriented x3, Normal Motor, Normal Sensation ED Course And Treatment O2 Sat by Pulse Oximetry: 97 Pulse Ox Interpretation: Normal Progress Note: Charlie wrap applied to left knee by biotechnician. Reassessment Condition: Improved Disposition Counseled Patient/Family Regarding: Diagnosis, Need For Followup, Rx Given - Disposition Referrals: Pino Nevarez MD [Staff Provider] - [facility] [Outside] Disposition: HOME/ ROUTINE Disposition Time: 10:43 Condition: STABLE Additional Instructions: Follow up with an occupational safety specialist for further evaluation and treatment. Return to the ER if you develop redness, fever, worsening of symptoms or if you have any other concerns. Prescriptions: Naproxen [Naprosyn] 1 tab PO BID PRN #25 tab PRN Reason: Pain Instructions: Knee Pain (DC) - Clinical Impression Clinical Impression: Effusion of knee joint, left
== END 2018-09-10 10:50 | disposition home or self-care (01) ==
LOC: C.ER 09:27
DX: M25.462 Effusion, left knee (principal)

== ENCOUNTER 2018-09-18 01:57 | Emergency (ER) | payer SELFPAY ==
[2018-09-18 01:57] VITALS: BMI 24.4
[2018-09-18] MEDS ORDERED: Albuterol 0.083% Inhal Sol (2.5 mg/3 mL) UD ONE (02:06)
[2018-09-18 02:07] VITALS: RESP 14
--- NOTE | 2018-09-18 02:10 | C.PDOC ---
Time Seen by Provider: 09/18/18 02:09 Chief Complaint (Nursing): Shortness Of Breath Past Medical History Vital Signs: Last Vital Signs Temp 97.4 F L 09/18/18 02:03 Pulse 61 09/18/18 02:03 Resp 14 09/18/18 02:03 BP 119/73 09/18/18 02:03 Pulse Ox 96 09/18/18 02:03 - Medical History PMH: Asthma Family History: States: Unknown Family Hx - Social History Hx Tobacco Use: Yes Hx Alcohol Use: No Hx Substance Use: No - Immunization History Hx Tetanus Toxoid Vaccination: No Hx Influenza Vaccination: No Hx Pneumococcal Vaccination: No ED Course And Treatment O2 Sat by Pulse Oximetry: 96 Disposition Counseled Patient/Family Regarding: Studies Performed, Diagnosis - Disposition Disposition Time: 02:10
--- NOTE | 2018-09-18 02:21 | C.PDOC ---
History Of Present Illness Pt ran out of his inhalers and can't afford them. c/o wheezing. speaking in 4-5 word sentences. No f/c/n/v Time Seen by Provider: 09/18/18 02:09 Chief Complaint (Nursing): Shortness Of Breath History Per: Patient History/Exam Limitations: no limitations Onset/Duration Of Symptoms: Days Current Symptoms Are (Timing): Still Present Associated Symptoms: Other (wheezing). denies: Dyspnea Preciptating Factors: Ran Out Of Meds Severity: Moderate Pain Scale Rating Of: 4 Recent travel outside of [place] States: No Additional History Per: Patient Past Medical History Reviewed: Historical Data, Nursing Documentation, Vital Signs Vital Signs: Last Vital Signs Temp 97.4 F L 09/18/18 02:03 Pulse 61 09/18/18 02:03 Resp 14 09/18/18 02:09 BP 119/73 09/18/18 02:03 Pulse Ox 96 09/18/18 02:09 - Medical History PMH: Asthma Family History: States: No Known Family Hx - Social History Hx Tobacco Use: Yes Hx Alcohol Use: No Hx Substance Use: No - Immunization History Hx Tetanus Toxoid Vaccination: No Hx Influenza Vaccination: No Hx Pneumococcal Vaccination: No Review Of Systems Constitutional: Negative for: Fever, Chills Respiratory: Positive for: Shortness of Breath, Wheezing Gastrointestinal: Negative for: Nausea, Vomiting, Abdominal Pain Musculoskeletal: Negative for: Back Pain Skin: Negative for: Rash Neurological: Negative for: Weakness Psych: Negative for: Anxiety Physical Exam - Physical Exam Appears: Non-toxic, No Acute Distress Skin: Warm, Dry Oral Mucosa: Moist Neck: Supple Chest: Symmetrical Cardiovascular: Rhythm Regular Respiratory: Decreased Breath Sounds, No Rales, No Rhonchi, Wheezing Gastrointestinal/Abdominal: Soft, No Tenderness, No Distention Back: No CVA Tenderness Neurological/Psych: Oriented x3 Gait: Steady ED Course And Treatment O2 Sat by Pulse Oximetry: 96 Pulse Ox Interpretation: Normal Reevaluation Time: 04:48 Reassessment Condition: Improved Critical Care Time - Critical Care Note Total Time (in mins): 30 Documented critical care: time excludes all time spent performing seperately billable procedures. Medical Decision Making Medical Decision Making: Upon provider reevaluation patient is feeling better, is medically stable, and requires no further treatment in the ED at this time. Patient will be discharged home with Rx for duonebs . Counseling was provided and all questions were answered regarding diagnosis and need for follow up with the referred clinic. There is agreement to discharge plan. Return if symptoms persist or worsen. Disposition Counseled Patient/Family Regarding: Studies Performed, Diagnosis, Need For Followup, Rx Given - Disposition Referrals: [facility] [Outside] [facility] [Outside] Disposition: HOME/ ROUTINE Disposition Time: 02:19 Condition: FAIR Additional Instructions: Please return if symptoms recur Prescriptions: Albuterol HFA [Ventolin HFA 90 mcg/actuation (8 g)] 2 puff IH [id number] #1 puff Albuterol/Ipratropium [Duoneb 3 MG/3 Ml-0.5 MG/3 Ml 3 Ml] 3 ml IH QID #50 neb Instructions: Asthma, Adult (DC) Forms: [facility] ([place]) - Clinical Impression Clinical Impression: Asthma exacerbation
[2018-09-18] MEDS ORDERED: Albuterol-Ipratrop 3 mg / 0.5 (3 ml) UD ONE (02:22)
[2018-09-18] MEDS: Albuterol-Ipratrop 3 mg / 0.5 (3 ml) UD IH SCH (02:45)
[2018-09-18 03:39] VITALS: BP 124/68; PULSE 62; TEMP 97.7
[2018-09-18 04:51] VITALS: O2SAT 96
== END 2018-09-18 05:05 | disposition home or self-care (01) ==
LOC: C.ER 01:57
DX: J45.901 Unspecified asthma with (acute) exacerbation (principal); Z72.0 Tobacco use

== ENCOUNTER 2018-10-08 23:51 | Observation (INO) | payer MEDICAID ==
[2018-10-09] MEDS ORDERED: Magnesium Sulfate 1 gm in D5W 2 GM/200 ML BAG IVPB ONE (04:22)
--- NOTE | 2018-10-09 04:22 | CP.PCM.HP ---
<Yoli Martinez - Last Filed: 10/09/18 05:32> History of Present Illness - History of Present Illness History of Present Illness: cc: SOB/wheezing Patient is a 23 year old male w/ pmhx of asthma who presents to the ED with progressive SOB and wheezing over the past week. Patient reports he ran out of his asthma medications 1 month ago and was unable to refill them 2/2 insurance and financial issues. He reports hx of seasonal allergies, and was experiencing symptoms prior to onset of SOB last week. Patient reports he uses his inhaler several times daily at home; he reports many hospitalizations 2/2 asthma exacerbations, denies intubations. Denies further complaints pmhx: asthma, seasonal allergies pshx: denies allergies: denies meds: ventolin, monteleukast sochx: denies Present on Admission - Present on Admission Any Indicators Present on Admission: No Review of Systems - Constitutional Constitutional: absent: Chills, Fever - EENT Nose/Mouth/Throat: Post Nasal Drip, Sore Throat - Cardiovascular Cardiovascular: absent: Chest Pain, Palpitations - Respiratory Respiratory: Cough, Dyspnea, Wheezing, Excessive Mucous Production - Gastrointestinal Gastrointestinal: absent: Abdominal Pain, Constipation, Diarrhea, Nausea - Neurological Neurological: absent: Dizziness, Headaches - Psychiatric Psychiatric: absent: Anxiety, Panic Attacks Past Patient History - Infectious Disease Hx of Infectious Diseases: None - Past Medical History & Family History Past Medical History?: Yes - Past Social History Smoking Status: Never Smoked - PULMONARY Hx Asthma: Yes - NEUROLOGICAL Hx Neurological Disorder: No - HEENT Hx HEENT Problems: No - RENAL Hx Chronic Kidney Disease: No - ENDOCRINE/METABOLIC Hx Endocrine Disorders: No - HEMATOLOGICAL/ONCOLOGICAL Hx Blood Disorders: No - INTEGUMENTARY Hx Dermatological Problems: No - MUSCULOSKELETAL/RHEUMATOLOGICAL Hx Falls: No - GASTROINTESTINAL Hx Gastrointestinal Disorders: No - GENITOURINARY/GYNECOLOGICAL Hx Genitourinary Disorders: No - PSYCHIATRIC Hx Substance Use: No - SURGICAL HISTORY Hx Surgeries: No - ANESTHESIA Hx Anesthesia: No Meds Allergies/Adverse Reactions: Allergies Allergy/AdvReac Type Severity Reaction Status Date / Time seafood Allergy Intermediate URTICARIA Uncoded 09/18/18 02:07 Physical Exam - Constitutional Appears: Non-toxic, No Acute Distress - Head Exam Head Exam: ATRAUMATIC, NORMAL INSPECTION, NORMOCEPHALIC - Eye Exam Eye Exam: Conjunctival injection, EOMI Pupil Exam: NORMAL ACCOMODATION, PERRL - ENT Exam ENT Exam: Mucous Membranes Moist, Normal Exam - Neck Exam Neck exam: Positive for: Normal Inspection - Respiratory Exam Respiratory Exam: Decreased Breath Sounds, Wheezes. absent: Respiratory Distress - Cardiovascular Exam Cardiovascular Exam: REGULAR RHYTHM, +S1, +S2 - GI/Abdominal Exam GI & Abdominal Exam: Normal Bowel Sounds, Soft - Extremities Exam Extremities exam: Positive for: normal inspection. Negative for: calf t enderness, pedal edema - Neurological Exam Neurological exam: Alert, Oriented x3 - Psychiatric Exam Psychiatric exam: Normal Affect, Normal Mood - Skin Skin Exam: Dry, Intact, Normal Color, Warm Assessment & Plan - Assessment and Plan (Free Text) Assessment: 23 year old male w/ pmhx of asthma admitted for treatment of acute asthma exacerbation Plan: Acute asthma exacerbation -2/2 medication non-compliance -Duonebs q4h melchor -Duonebs q2h prn -solumedrol 60mg ivp q8h -continue home monteleukast 10mg hs -start claritin 10mg qd -f/u CXR Ppx: GI: pepcid VTE: SCDs Discussed w/ Dr. Elena Martinez, PGY-1 <Bertha Parker N - Last Filed: 10/10/18 05:12> History of Present Illness - History of Present Illness History of Present Illness: a/p asthma exacerbation. allergic rhinitis. non compliant. Results - Vital Signs Recent Vital Signs: Last Vital Signs Temp 97.9 F 10/09/18 22:00 Pulse 80 10/09/18 22:00 Resp 20 10/09/18 22:00 BP 129/66 10/09/18 22:00 Pulse Ox 94 L 10/09/18 22:00 - Labs Result Diagrams: 10/09/18 17:12 10/09/18 17:12 Labs: Laboratory Results - last 24 hr 10/09/18 10/09/18 10/09/18 02:22 02:22 17:12 WBC 10.9 H 14.0 H RBC 5.67 5.52 Hgb 16.9 D 16.6 Hct 48.6 47.7 MCV 85.6 86.4 MCH 29.7 30.0 MCHC 34.7 34.7 RDW 12.3 12.2 Plt Count 314 D 342 MPV 7.2 7.1 L Neut % (Auto) 65.9 90.1 H Lymph % (Auto) 22.8 8.1 L Kidder % (Auto) 7.7 1.5 Eos % (Auto) 2.9 0.0 Baso % (Auto) 0.7 0.3 Neut # (Auto) 7.2 H 12.6 H Lymph # (Auto) 2.5 1.1 Kidder # (Auto) 0.8 0.2 Eos # (Auto) 0.3 0.0 Baso # (Auto) 0.1 0.0 Neutrophils % (Manual) 87 H Lymphocytes % (Manual) 11 L Monocytes % (Manual) 2 Platelet Estimate Normal RBC Morphology Normal Sodium 142 Potassium 4.1 Chloride 101 Carbon Dioxide 29 Anion Gap 16 BUN 16 Creatinine 0.9 Est GFR ( Amer) > 60 Est GFR (Non-Af Amer) > 60 Random Glucose 96 D Calcium 9.9 Phosphorus Magnesium Total Bilirubin AST ALT Alkaline Phosphatase Total Protein Albumin Globulin Albumin/Globulin Ratio 10/09/18 17:12 WBC RBC Hgb Hct MCV MCH MCHC RDW Plt Count MPV Neut % (Auto) Lymph % (Auto) Kidder % (Auto) Eos % (Auto) Baso % (Auto) Neut # (Auto) Lymph # (Auto) Kidder # (Auto) Eos # (Auto) Baso # (Auto) Neutrophils % (Manual) Lymphocytes % (Manual) Monocytes % (Manual) Platelet Estimate RBC Morphology Sodium 138 Potassium 4.4 Chloride 98 Carbon Dioxide 25 Anion Gap 20 BUN 18 Creatinine 1.0 Est GFR ( Amer) > 60 Est GFR (Non-Af Amer) > 60 Random Glucose 132 H D Calcium 10.0 Phosphorus 3.2 Magnesium 2.0 Total Bilirubin 0.6 AST 37 ALT 29 Alkaline Phosphatase 69 Total Protein 8.9 H Albumin 4.8 Globulin 4.1 H Albumin/Globulin Ratio 1.2
[2018-10-09 04:55] VITALS: BMI 27.1
[2018-10-09] MEDS ORDERED: Albuterol-Ipratrop 3 mg / 0.5 (3 ml) UD INH PRN (05:20)
[2018-10-09] MEDS ORDERED: Sodium Chloride 0.9% 1,000 ML IV ONE (05:21)
[2018-10-09 07:33] LABS: BASO # 0.1 K/uL (0.0-0.2); BASO % 0.7 % (0.0-2.0); EOS # 0.3 K/uL (0.0-0.7); EOS % 2.9 % (0.0-4.0); LYMPH # 2.5 K/uL (1.0-4.3); LYMPH % 22.8 % (20.0-40.0); MEAN CELL VOLUME 85.6 fL (80.0-94.0); MEAN CORPUSCULAR HEMOGLOBIN 29.7 pg (27.0-31.0); MEAN CORPUSCULAR HGB CONC 34.7 g/dL (33.0-37.0); MEAN PLATELET VOLUME 7.2 fL (7.2-11.7); MONO # 0.8 K/uL (0.0-0.8); MONO % 7.7 % (0.0-10.0); NEUT # 7.2 K/uL (1.8-7.0); NEUT % 65.9 % (50.0-75.0); NRBC % 0.3 % (0.0-2.0); RBC 5.67 Mil/uL (4.40-5.90); RED CELL DISTRIBUTION WIDTH 12.3 % (11.5-14.5); WHITE BLOOD COUNT 10.9 K/uL (4.8-10.8)
[2018-10-09 07:34] LABS: HEMOGLOBIN 16.9 g/dL (12.0-18.0)
[2018-10-09] MEDS: Albuterol-Ipratrop 3 mg / 0.5 (3 ml) UD INH SCH ×5 (08:31→23:59)
[2018-10-09 09:29] LABS: BLOOD UREA NITROGEN 16 mg/dL (9-20)
[2018-10-09 09:30] LABS: GFR NON-AFRICAN AMERICAN > 60
[2018-10-09 09:32] LABS: CALCIUM 9.9 mg/dl (8.6-10.4)
--- NOTE | 2018-10-09 10:33 | RAD ---
Date of service: 10/09/2018 HISTORY: Shortness of breath COMPARISON: 10/25/2016 TECHNIQUE: Chest PA and lateral FINDINGS: LINES AND TUBES: None. LUNG AND PLEURA: The lungs are well inflated and clear. No pleural effusion or pneumothorax. HEART AND MEDIASTINUM: The heart is not enlarged. No aortic atherosclerotic calcifications present. The hilar and mediastinal contours are within normal limits. SKELETAL STRUCTURES: The bony structures are within normal limits for the patient's age. VISUALIZED UPPER ABDOMEN: Normal. OTHER FINDINGS: None. IMPRESSION: No active pulmonary disease.
[2018-10-09 12:44] VITALS: RESP 20
[2018-10-09] MEDS: MethylPREDNISolone 40 mg Vial IVP SCH ×2 (13:20→21:26)
--- NOTE | 2018-10-09 13:46 | CP.PCM.PN ---
Subjective - Date & Time of Evaluation Date of Evaluation: 10/09/18 Time of Evaluation: 13:43 - Subjective Subjective: HOSPITALIST SERVICE Pt s/e at bedside, reports imporovement of headache and bliurry vision he had upon presentation, says his peak flow in ED was 130, now its 300. Reports persistent SOB and wheezing. Pt says he did not take his prednisone taper upon last discharge. Says main issue is medication purchasing. denies CP FC NV. Objective - Vital Signs/Intake and Output Vital Signs (last 24 hours): Temp Pulse Resp BP Pulse Ox 97.6 F 88 20 143/66 94 L 10/09/18 11:00 10/09/18 11:32 10/09/18 11:00 10/09/18 11:00 10/09/18 11:00 - Medications Medications: Current Medications Albuterol/Ipratropium (Duoneb 3 Mg/0.5 Mg (3 Ml) Ud) 3 ml INH RQ4 [facility] Last Admin: 10/09/18 11:31 Dose: 3 ml Albuterol/Ipratropium (Duoneb 3 Mg/0.5 Mg (3 Ml) Ud) 3 ml INH RQ2 PRN PRN Reason: Shortness of Breath Famotidine (Pepcid) 20 mg PO DAILY [facility] Last Admin: 10/09/18 09:29 Dose: 20 mg Sodium Chloride (Sodium Chloride 0.9%) 1,000 mls @ 100 mls/hr IV .Q10H ONE Stop: 10/09/18 15:20 Last Admin: 10/09/18 11:00 Dose: 100 mls/hr Loratadine (Claritin) 10 mg PO DAILY [facility] Last Admin: 10/09/18 09:29 Dose: 10 mg Methylprednisolone (Solu-Medrol) 60 mg IVP Q8H [facility] Last Admin: 10/09/18 13:20 Dose: 60 mg Montelukast Sodium (Singulair) 10 mg PO [facility] - Labs Labs: 10/09/18 02:22 10/09/18 02:22 - Additional Findings Additional findings: - Constitutional Appears: Non-toxic, No Acute Distress - Head Exam Head Exam: ATRAUMATIC, NORMAL INSPECTION, NORMOCEPHALIC - Eye Exam Eye Exam: Conjunctival injection, EOMI Pupil Exam: NORMAL ACCOMODATION, PERRL - ENT Exam ENT Exam: Mucous Membranes Moist, Normal Exam - Neck Exam Neck exam: Positive for: Normal Inspection - Respiratory Exam Respiratory Exam: Decreased Breath Sounds, Wheezes. absent: Respiratory Distress, nasal flaring, cyanosis, accessory muscle use - Cardiovascular Exam Cardiovascular Exam: REGULAR RHYTHM, +S1, +S2 - GI/Abdominal Exam GI & Abdominal Exam: Normal Bowel Sounds, Soft - Extremities Exam Extremities exam: Positive for: normal inspection. Negative for: calf tenderness, pedal edema - Neurological Exam Neurological exam: Alert, Oriented x3 - Psychiatric Exam Psychiatric exam: Normal Affect, Normal Mood - Skin Skin Exam: Dry, Intact, Normal Color, Warm Assessment and Plan - Assessment and Plan (Free Text) Assessment: 23 year old male w/ pmhx of asthma admitted for treatment of acute asthma exacerbation Plan: Acute asthma exacerbation Sever Persistent -2/2 medication non-compliance: pt educated on following up outpt and using GoodRx for help with costs -Duonebs q4h melchor -Duonebs q2h prn -solumedrol 60mg ivp q8h -continue home monteleukast 10mg hs -start claritin 10mg qd -CXR: no active disease -peak flow improving, monitor -NC @ 2L, due to episode of desat down to 87% on room air Ppx: GI: pepcid VTE: SCDs Discussed w/ Dr. Dyson
--- NOTE | 2018-10-09 16:17 | RAD ---
Date of service: 10/09/2018 PROCEDURE: CHEST RADIOGRAPH, 1 VIEW HISTORY: CHEST PAIN COMPARISON: 10/25/2016 FINDINGS: LUNGS: Clear. PLEURA: No pneumothorax or pleural fluid seen. CARDIOVASCULAR: No aortic atherosclerotic calcification present. Normal. OSSEOUS STRUCTURES: No significant abnormalities. VISUALIZED UPPER ABDOMEN: Normal. OTHER FINDINGS: None. IMPRESSION: No active disease.
[2018-10-09 17:23] LABS: BASO % 0.3 % (0.0-2.0); HEMOGLOBIN 16.6 g/dL (12.0-18.0); LYMPH # 1.1 K/uL (1.0-4.3); LYMPH % 8.1 % (20.0-40.0); MEAN CELL VOLUME 86.4 fL (80.0-94.0); MEAN CORPUSCULAR HGB CONC 34.7 g/dL (33.0-37.0); MEAN PLATELET VOLUME 7.1 fL (7.2-11.7); MONO # 0.2 K/uL (0.0-0.8); MONO % 1.5 % (0.0-10.0); NEUT # 12.6 K/uL (1.8-7.0); NEUT % 90.1 % (50.0-75.0); NRBC % 0.1 % (0.0-2.0); PLATELET COUNT 342 K/uL (130-400); RBC 5.52 Mil/uL (4.40-5.90); RED CELL DISTRIBUTION WIDTH 12.2 % (11.5-14.5)
[2018-10-09 17:39] LABS: ALB/GLOB RATIO 1.2 (1.0-2.1); ALBUMIN 4.8 g/dL (3.5-5.0); ALT/SGPT 29 U/L (21-72); AST/SGOT 37 U/L (17-59); BLOOD UREA NITROGEN 18 mg/dL (9-20); GFR NON-AFRICAN AMERICAN > 60
[2018-10-09 18:17] LABS: LYMPHOCYTE 11 % (20-40); MONOCYTE 2 % (0-10); NEUTROPHIL 87 % (50-75); PLATELET ESTIMATE NORMAL (NORMAL); TOTAL CELLS COUNTED 100
[2018-10-10] MEDS: Albuterol-Ipratrop 3 mg / 0.5 (3 ml) UD INH SCH ×6 (03:39→23:53)
[2018-10-10] MEDS: MethylPREDNISolone 40 mg Vial IVP SCH ×3 (04:48→21:58)
[2018-10-10 07:39] LABS: BASO % 0.3 % (0.0-2.0); HEMOGLOBIN 15.3 g/dL (12.0-18.0); LYMPH # 1.2 K/uL (1.0-4.3); LYMPH % 9.4 % (20.0-40.0); MEAN CELL VOLUME 88.2 fL (80.0-94.0); MEAN CORPUSCULAR HEMOGLOBIN 30.2 pg (27.0-31.0); MEAN CORPUSCULAR HGB CONC 34.2 g/dL (33.0-37.0); MEAN PLATELET VOLUME 7.3 fL (7.2-11.7); MONO # 0.5 K/uL (0.0-0.8); MONO % 4.1 % (0.0-10.0); NEUT # 10.9 K/uL (1.8-7.0); NEUT % 86.2 % (50.0-75.0); PLATELET COUNT 332 K/uL (130-400); RBC 5.08 Mil/uL (4.40-5.90); RED CELL DISTRIBUTION WIDTH 12.1 % (11.5-14.5); WHITE BLOOD COUNT 12.6 K/uL (4.8-10.8)
[2018-10-10 08:15] LABS: ALB/GLOB RATIO 1.2 (1.0-2.1); ALBUMIN 4.4 g/dL (3.5-5.0); ALT/SGPT 27 U/L (21-72); AST/SGOT 30 U/L (17-59); BLOOD UREA NITROGEN 19 mg/dL (9-20); CALCIUM 9.5 mg/dl (8.6-10.4); GFR NON-AFRICAN AMERICAN > 60
[2018-10-10 08:41] LABS: BANDS 5 % (0-2); LYMPHOCYTE 6 % (20-40); MONOCYTE 4 % (0-10); NEUTROPHIL 85 % (50-75); PLATELET ESTIMATE NORMAL (NORMAL); TOTAL CELLS COUNTED 100
--- NOTE | 2018-10-10 12:35 | CP.PCM.PN ---
Subjective - Date & Time of Evaluation Date of Evaluation: 10/10/18 Time of Evaluation: 12:35 - Subjective Subjective: HOSPITALIST SERVICE Pt s/e at bedside reports persistent SOB and chest tightness, reports wheezing. denies CP FC NV at this time, denies cyanosis, reports incremental improvement with current breathing treatments. Objective - Vital Signs/Intake and Output Vital Signs (last 24 hours): Temp Pulse Resp BP Pulse Ox 97.7 F 79 20 142/69 94 L 10/10/18 07:05 10/10/18 07:05 10/10/18 07:05 10/10/18 07:05 10/10/18 07:05 Intake and Output: 10/10/18 10/10/18 06:59 18:59 Intake Total 240 Balance 240 - Medications Medications: Current Medications Albuterol/Ipratropium (Duoneb 3 Mg/0.5 Mg (3 Ml) Ud) 3 ml INH RQ4 [facility] Last Admin: 10/10/18 11:24 Dose: 3 ml Albuterol/Ipratropium (Duoneb 3 Mg/0.5 Mg (3 Ml) Ud) 3 ml INH RQ4 PRN PRN Reason: Shortness of Breath Famotidine (Pepcid) 20 mg PO DAILY [facility] Last Admin: 10/10/18 09:09 Dose: 20 mg Loratadine (Claritin) 10 mg PO DAILY [facility] Last Admin: 10/10/18 09:09 Dose: 10 mg Methylprednisolone (Solu-Medrol) 60 mg IVP Q8H [facility] Last Admin: 10/10/18 04:48 Dose: 60 mg Montelukast Sodium (Singulair) 10 mg PO HS [facility] Last Admin: 10/09/18 21:27 Dose: 10 mg - Labs Labs: 10/10/18 07:25 10/10/18 07:25 - Additional Findings Additional findings: - Constitutional Appears: Non-toxic, No Acute Distress - Head Exam Head Exam: ATRAUMATIC, NORMAL INSPECTION, NORMOCEPHALIC - Eye Exam Eye Exam: Conjunctival injection, EOMI Pupil Exam: NORMAL ACCOMODATION, PERRL - ENT Exam ENT Exam: Mucous Membranes Moist, Normal Exam - Neck Exam Neck exam: Positive for: Normal Inspection - Respiratory Exam Respiratory Exam: Decreased Breath Sounds, Wheezes. absent: Respiratory Distress, nasal flaring, cyanosis, accessory muscle use - Cardiovascular Exam Cardiovascular Exam: REGULAR RHYTHM, +S1, +S2 - GI/Abdominal Exam GI & Abdominal Exam: Normal Bowel Sounds, Soft - Extremities Exam Extremities exam: Positive for: normal inspection. Negative for: calf tenderness, pedal edema - Neurological Exam Neurological exam: Alert, Oriented x3 - Psychiatric Exam Psychiatric exam: Normal Affect, Normal Mood - Skin Skin Exam: Dry, Intact, Normal Color, Warm Assessment and Plan - Assessment and Plan (Free Text) Assessment: 23 year old male w/ pmhx of asthma admitted for treatment of acute asthma exace rbation Plan: Acute asthma exacerbation Sever Persistent -2/2 medication non-compliance: pt educated on following up outpt and using GoodRx for help with costs -Duonebs q4h melchor -Duonebs q2h prn -solumedrol 60mg ivp q8h -monteleukast 10mg hs -claritin 10mg qd -CXR: no active disease -peak flow improving today to 410, monitor -NC @ 2L, due to episode of desat down to 87% on room air Ppx: GI: pepcid VTE: SCDs DISPO: Pt likely dc home tmrw Discussed w/ Dr. Dyson
[2018-10-11] MEDS: Albuterol-Ipratrop 3 mg / 0.5 (3 ml) UD INH SCH ×3 (03:21→11:26)
[2018-10-11] MEDS: MethylPREDNISolone 40 mg Vial IVP SCH (05:23)
--- NOTE | 2018-10-11 07:05 | CP.PCM.DIS ---
Provider - Provider Date of Admission: 10/09/18 02:37 Attending physician: Shelly Dyson DO Consults: 10/09/18 12:44 Inpatient [facility] [employer] Me[facility] Referral Routine Comment: Physician Instructions: Reason For Exam: shortness of breath Time Spent in preparation of Discharge (in minutes): 45 Diagnosis - Discharge Diagnosis (1) Asthma exacerbation Status: Suspected Hospital Course - Lab Results Lab Results: Most Recent Lab Values WBC 12.6 K/uL (4.8-10.8) H 10/10/18 07:25 RBC 5.08 Mil/uL (4.40-5.90) 10/10/18 07:25 Hgb 15.3 g/dL (12.0-18.0) 10/10/18 07:25 Hct 44.8 % (35.0-51.0) 10/10/18 07:25 MCV 88.2 fL (80.0-94.0) 10/10/18 07:25 MCH 30.2 pg (27.0-31.0) 10/10/18 07:25 MCHC 34.2 g/dL (33.0-37.0) 10/10/18 07:25 RDW 12.1 % (11.5-14.5) 10/10/18 07:25 Plt Count 332 K/uL (130-400) 10/10/18 07:25 MPV 7.3 fL (7.2-11.7) 10/10/18 07:25 Neut % (Auto) 86.2 % (50.0-75.0) H 10/10/18 07:25 Lymph % (Auto) 9.4 % (20.0-40.0) L 10/10/18 07:25 Mccreary % (Auto) 4.1 % (0.0-10.0) 10/10/18 07:25 Eos % (Auto) 0.0 % (0.0-4.0) 10/10/18 07:25 Baso % (Auto) 0.3 % (0.0-2.0) 10/10/18 07:25 Neut # (Auto) 10.9 K/uL (1.8-7.0) H 10/10/18 07:25 Lymph # (Auto) 1.2 K/uL (1.0-4.3) 10/10/18 07:25 Mccreary # (Auto) 0.5 K/uL (0.0-0.8) 10/10/18 07:25 Eos # (Auto) 0.0 K/uL (0.0-0.7) 10/10/18 07:25 Baso # (Auto) 0.0 K/uL (0.0-0.2) 10/10/18 07:25 Neutrophils % (Manual) 85 % (50-75) H 10/10/18 07:25 Band Neutrophils % 5 % (0-2) H 10/10/18 07:25 Lymphocytes % (Manual) 6 % (20-40) L 10/10/18 07:25 Monocytes % (Manual) 4 % (0-10) 10/10/18 07:25 Platelet Estimate Normal (NORMAL) 10/10/18 07:25 RBC Morphology Normal 10/10/18 07:25 Sodium 138 mmol/L (132-148) 10/10/18 07:25 Potassium 4.4 mmol/L (3.6-5.2) 10/10/18 07:25 Chloride 101 mmol/L (98-107) 10/10/18 07:25 Carbon Dioxide 23 mmol/L (22-30) 10/10/18 07:25 Anion Gap 19 (10-20) 10/10/18 07:25 BUN 19 mg/dL (9-20) 10/10/18 07:25 Creatinine 0.9 mg/dL (0.8-1.5) 10/10/18 07:25 Est GFR ( Amer) > 60 10/10/18 07:25 Est GFR (Non-Af Amer) > 60 10/10/18 07:25 Random Glucose 140 mg/dL (75-110) H 10/10/18 07:25 Calcium 9.5 mg/dl (8.6-10.4) 10/10/18 07:25 Phosphorus 3.1 mg/dL (2.5-4.5) 10/10/18 07:25 Magnesium 1.9 mg/dL (1.6-2.3) 10/10/18 07:25 Total Bilirubin 0.3 mg/dL (0.2-1.3) 10/10/18 07:25 AST 30 U/L (17-59) 10/10/18 07:25 ALT 27 U/L (21-72) 10/10/18 07:25 Alkaline Phosphatase 60 U/L (38-126) 10/10/18 07:25 Total Protein 8.2 g/dL (6.3-8.3) 10/10/18 07:25 Albumin 4.4 g/dL (3.5-5.0) 10/10/18 07:25 Globulin 3.7 gm/dL (2.2-3.9) 10/10/18 07:25 Albumin/Globulin Ratio 1.2 (1.0-2.1) 10/10/18 07:25 - Hospital Course Hospital Course: cc: SOB/wheezing Patient is a 23 year old male w/ pmhx of asthma who presents to the ED with progressive SOB and wheezing over the past week. Patient reports he ran out of his asthma medications 1 month ago and was unable to refill them 2/2 insurance and financial issues. He reports hx of seasonal allergies, and was experiencing symptoms prior to onset of SOB last week. Patient reports he uses his inhaler several times daily at home; he reports many hospitalizations 2/2 asthma exacerbations, denies intubations. Denies further complaints pmhx: asthma, seasonal allergies pshx: denies allergies: denies meds: ventolin, monteleukast sochx: denies Pt was admitted for acute asthma exacerbation, pt was put on duonebs and solumedrol 60 q8 IVP, singulair Pt improved after 2 days, peak flow improved to 400, dc home on pred 40mg 5 days Discharge Exam - Head Exam Head Exam: ATRAUMATIC, NORMAL INSPECTION, NORMOCEPHALIC - Additional Findings Additional findings: - Constitutional Appears: Non-toxic, No Acute Distress - Head Exam Head Exam: ATRAUMATIC, NORMAL INSPECTION, NORMOCEPHALIC - Eye Exam Eye Exam: Conjunctival injection, EOMI Pupil Exam: NORMAL ACCOMODATION, PERRL - ENT Exam ENT Exam: Mucous Membranes Moist, Normal Exam - Neck Exam Neck exam: Positive for: Normal Inspection - Respiratory Exam Respiratory Exam: Decreased Breath Sounds, Wheezes. absent: Respiratory Distress, nasal flaring, cyanosis, accessory muscle use - Cardiovascular Exam Cardiovascular Exam: REGULAR RHYTHM, +S1, +S2 - GI/Abdominal Exam GI & Abdominal Exam: Normal Bowel Sounds, Soft - Extremities Exam Extremities exam: Positive for: normal inspection. Negative for: calf tenderness, pedal edema - Neurological Exam Neurological exam: Alert, Oriented x3 - Psychiatric Exam Psychiatric exam: Normal Affect, Normal Mood - Skin Skin Exam: Dry, Intact, Normal Color, Warm Discharge Plan - Discharge Medications Prescriptions: Albuterol HFA [Ventolin HFA 90 mcg/actuation (8 g)] 2 puff IH [id number] PRN #1 inhaler PRN Reason: Wheezing Fluticasone Furoate [Arnuity Ellipta] 200 mcg IH BID #1 blst.w.dev Fluticasone Propion/Salmeterol [Fluticasone-Salmeterol 250-50] 1 each IH BID #1 blst.w.dev Montelukast [Singulair] 10 mg PO HS #30 tab predniSONE [predniSONE Tab] 40 mg PO DAILY #10 tab - Follow Up Plan Condition: GOOD Disposition: HOME/ ROUTINE Instructions: Asthma, Adult (DC), Albuterol, Fluticasone and Salmeterol, Montelukast, Prednisone Additional Instructions: Pt is to be dc home on the following medications Albuterol HFA [Ventolin HFA 90 mcg/actuation (8 g)] 2 puff IH [id number] PRN #1 inhaler PRN Reason: Wheezing Fluticasone Furoate [Arnuity Ellipta] 200 mcg IH BID #1 blst.w.dev Montelukast [Singulair] 10 mg PO HS #30 tab predniSONE [predniSONE Tab] 40 mg PO DAILY #10 tab - 5 day Patient is to follow up in clinic with Dr Michaels within 7 days If symptoms persists, Fluitcasone furoate pump may be changed to fluticasone/salmeterol, reason for current Rx was for cost considerations Pt may take claritin OTC for allergy symptoms Take Care and be well [facility] PGY1 Referrals: Mariza Michaels MD [Staff Provider] -
[2018-10-11 07:44] VITALS: BP 139/68; PULSE 88; TEMP 97.8; O2SAT 96
[2018-10-11] MEDS ORDERED: MethylPREDNISolone 40 mg Vial IVP SCH (10:10)
== END 2018-10-11 12:01 | disposition home or self-care (01) ==
LOC: C.ER 23:51 → C.9E 10-09 02:37 → C.5S 10-09 09:34
PROVIDERS: ADMIT Emergency Medicine; ATTEND Hospitalist
DX: J45.901 Unspecified asthma with (acute) exacerbation (principal); Z91.19 Patient's noncompliance with other medical treatment and regimen
CPT/HCPCS: 36415; 71045; 71046; 80048; 80053; 83735; 84100; 85025; 94150; 94640; 99281; G0378; J2920